=== PATIENT | male | born 1955 | race Caucasian/White ===

== ENCOUNTER 2021-01-14 23:29 | Inpatient (IN) | payer MEDICARE, OTHER ==
[2021-01-14] MEDS ORDERED: Morphine 2 MG/ML SYRINGE IVPUSH PRN (23:54)
--- NOTE | 2021-01-14 23:58 | EDM.PDOC ---
ED HPI GENERAL MEDICAL PROBLEM - General Chief Complaint: Chest Pain Stated Complaint: MED[facility] Time Seen by Provider: 01/14/21 23:49 Source of Information: Reports: Patient, RN Notes Reviewed History Limitations: Reports: No Limitations - History of Present Illness INITIAL COMMENTS - FREE TEXT/NARRATIVE: 65-year-old gentleman presents emergency department a sudden onset of chest pain, he did have some numbness and tingling in his arms no diaphoresis had some nausea no shortness of breath beyond baseline. He has no cardiac history does have a history of esophageal cancer Chest Pain Score (Numeric/FACES): 2 - Related Data Allergies Allergy/AdvReac Type Severity Reaction Status Date / Time No Known Allergies Allergy Verified 01/14/21 23:42 Home Meds: Home Meds NK [No Known Home Meds] 01/14/21 [History] Past Medical History HEENT History: Reports: Impaired Vision Musculoskeletal History: Reports: Arthritis Psychiatric History: Reports: Other (See Below) Other Psychiatric History: undiagnoised but pt thinks he might have anxiety Oncologic (Cancer) History: Reports: Other (See Below) Other Oncologic History: tonsils Dermatologic History: Reports: Eczema - Infectious Disease History Infectious Disease History: Reports: Mononucleosis, Novel Coronavirus - Past Surgical History HEENT Surgical History: Reports: Tonsillectomy Social & Family History - Tobacco Use Tobacco Use Status *Q: Never Tobacco User - Alcohol Use Number of Drinks Per Day: 2 - Recreational Drug Use Recreational Drug Use: No ED ROS GENERAL - Review of Systems Review Of Systems: See Below Constitutional: Reports: No Symptoms. Denies: Diaphoresis HEENT: Reports: No Symptoms Respiratory: Reports: Shortness of Breath Cardiovascular: Reports: Chest Pain GI/Abdominal: Reports: Nausea. Denies: Vomiting ED EXAM, GENERAL - Physical Exam Exam: See Below Exam Limited By: No Limitations General Appearance: Alert (25), WD/WN, No Apparent Distress Respiratory/Chest: No Respiratory Distress, Lungs Clear, Normal Breath Sounds, No Accessory Muscle Use, Chest Non-Tender Cardiovascular: Regular Rate, Rhythm, No Murmur GI/Abdominal: Soft, Non-Tender Extremities: No Pedal Edema #1 Interpretation EKG Date: 01/15/21 Time: 00:30 Rhythm: NSR [place]: Normal P-Wave: Present QRS: Normal ST-T: Normal QT: Normal Comparison: NA - No Prior EKG Course - Vital Signs Last Recorded V/S: Last Vital Signs Temp 98.4 F 01/15/21 03:15 Pulse 94 01/15/21 03:15 Resp 20 01/15/21 03:15 BP 116/71 01/15/21 03:15 Pulse Ox 93 L 01/15/21 03:15 - Orders/Labs/Meds Orders: Active Orders 24 hr Category Date Time Status Cardiac Monitoring [RC] .As Directed Care 01/14/21 23:54 Active EKG Documentation Completion [RC] ASDIRECTED Care 01/14/21 23:55 Active Chest 1V Frontal [CR] Stat Exams 01/14/21 23:55 Taken CULTURE BLOOD [BC] Urgent Lab 01/15/21 04:49 Ordered CULTURE BLOOD [BC] Urgent Lab 01/15/21 04:49 Ordered LACTIC ACID [CHEM] Stat Lab 01/15/21 04:53 Ordered Doxycycline [Vibramycin] 100 mg Med 01/15/21 04:49 Active Sodium Chloride 0.9% [Normal Saline] 100 ml IV ONETIME Morphine Med 01/14/21 23:54 Active 2 mg IVPUSH Q10M PRN cefTRIAXone [Rocephin] 1 gm Med 01/15/21 04:49 Active Sodium Chloride 0.9% [Normal Saline] 50 ml IV ONETIME Blood Culture x2 Reflex Set [OM.PC] Urgent Oth 01/15/21 04:49 Ordered Isolation [COMM] Stat Oth 01/15/21 02:50 Ordered EKG 12 Lead [EK] Stat Ther 01/14/21 23:55 Ordered Medication Orders Doxycycline Hyclate 100 mg/ (Sodium Chloride) 100 mls @ 100 mls/hr IV ONETIME ONE Stop: 01/15/21 05:48 Ceftriaxone Sodium 1 gm/ (Sodium Chloride) 50 mls @ 100 mls/hr IV ONETIME ONE Stop: 01/15/21 05:18 Morphine Sulfate (Morphine 2 Mg/Ml Syringe) 2 mg IVPUSH Q10M PRN PRN Reason: Chest Pain Stop: 01/15/21 23:55 Labs: Laboratory Tests 01/14/21 01/14/21 01/14/21 Range/Units 23:55 23:55 23:55 WBC 12.3 H (4.5-11.0) K/uL RBC 4.02 L (4.30-5.90) M/uL Hgb 12.6 (12.0-15.0) g/dL Hct 38.9 L (40.0-54.0) % MCV 97 (80-98) fL MCH 31 (27-31) pg MCHC 32 (32-36) % Plt Count 286 (150-400) K/uL Neut % (Auto) 88.4 H (36-66) % Lymph % (Auto) 4.5 L (24-44) % [place] % (Auto) 6.2 H (2-6) % Eos % (Auto) 0.7 L (2-4) % Baso % (Auto) 0.2 (0-1) % D-Dimer, Quantitative 934.41 H (0.0-500.0) ng/mL Sodium 142 (140-148) mmol/L Potassium 4.2 (3.6-5.2) mmol/L Chloride 104 (100-108) mmol/L Carbon Dioxide 30 (21-32) mmol/L Anion Gap 8.1 (5.0-14.0) mmol/L BUN 20 H (7-18) mg/dL Creatinine 1.1 (0.8-1.3) mg/dL Est Cr Clr Drug Dosing 76.67 mL/min Estimated GFR (MDRD) > 60 (>60) Glucose 115 H (74-106) mg/dL Calcium 8.3 L (8.5-10.1) mg/dL Total Bilirubin 0.2 (0.2-1.0) mg/dL AST 20 (15-37) U/L ALT 22 (12-78) U/L Alkaline Phosphatase 79 (46-116) U/L Troponin I < 0.017 (0.000-0.056) ng/mL Total Protein 6.6 (6.4-8.2) g/dL Albumin 3.0 L (3.4-5.0) g/dL Globulin 3.6 H (2.3-3.5) g/dL Albumin/Globulin Ratio 0.8 L (1.2-2.2) Procalcitonin ng/mL Influenza Type A RNA (NEGATIVE) RSV RNA (INAAT) (NEGATIVE) Influenza Type B RNA (NEGATIVE) SARS-CoV-2 RNA (RYDER) (NEGATIVE) 01/14/21 01/15/2121 Range/Units 23:55 02:50 04:00 WBC (4.5-11.0) K/uL RBC (4.30-5.90) M/uL Hgb (12.0-15.0) g/dL Hct (40.0-54.0) % MCV (80-98) fL MCH (27-31) pg MCHC (32-36) % Plt Count (150-400) K/uL Neut % (Auto) (36-66) % Lymph % (Auto) (24-44) % [place] % (Auto) (2-6) % Eos % (Auto) (2-4) % Baso % (Auto) (0-1) % D-Dimer, Quantitative (0.0-500.0) ng/mL Sodium (140-148) mmol/L Potassium (3.6-5.2) mmol/L Chloride (100-108) mmol/L Carbon Dioxide (21-32) mmol/L Anion Gap (5.0-14.0) mmol/L BUN (7-18) mg/dL Creatinine (0.8-1.3) mg/dL Est Cr Clr Drug Dosing mL/min Estimated GFR (MDRD) (>60) Glucose (74-106) mg/dL Calcium (8.5-10.1) mg/dL Total Bilirubin (0.2-1.0) mg/dL AST (15-37) U/L ALT (12-78) U/L Alkaline Phosphatase (46-116) U/L Troponin I < 0.017 (0.000-0.056) ng/mL Total Protein (6.4-8.2) g/dL Albumin (3.4-5.0) g/dL Globulin (2.3-3.5) g/dL Albumin/Globulin Ratio (1.2-2.2) Procalcitonin 0.28 ng/mL Influenza Type A RNA Negative (NEGATIVE) RSV RNA (INAAT) Negative (NEGATIVE) Influenza Type B RNA Negative (NEGATIVE) SARS-CoV-2 RNA (RYDER) Negative (NEGATIVE) Meds: Medications Generic Name Dose Route Start Last Admin Trade Name Freq PRN Reason Stop Dose Admin Doxycycline Hyclate 100 mg/ 100 mls @ 100 mls/hr 01/15/21 04:49 Sodium Chloride IV 01/15/21 05:48 ONETIME ONE Ceftriaxone Sodium 1 gm/ 50 mls @ 100 mls/hr 01/15/21 04:49 Sodium Chloride IV 01/15/21 05:18 ONETIME ONE Morphine Sulfate 2 mg 01/14/21 23:54 Morphine 2 Mg/Ml Syringe IVPUSH 01/15/21 23:55 Q10M PRN Chest Pain Discontinued Medications Generic Name Dose Route Start Last Admin Trade Name Stefanie PRN Reason Stop Dose Admin Lactated Ringer's 1,000 mls @ 999 mls/hr 01/15/21 00:44 01/15/21 00:51 Ringers, Lactated IV 01/15/21 01:44 999 mls/hr BOLUS ONE Administration Sodium Chloride 100 mls @ 4 mls/sec 01/15/21 01:38 01/15/21 01:47 Normal Saline IV 01/15/21 01:39 4 mls/sec ASDIRECTED STA Administration Iopamidol 100 ml 01/15/21 01:38 01/15/21 01:47 Iopamidol 755 Mg/Ml 100 Ml Bottle IV 01/15/21 01:39 100 ml . DIRECTED STA Administration Lorazepam 0.5 mg 01/15/21 01:19 01/15/21 01:33 Lorazepam 2 Mg/Ml Sdv IVPUSH 01/15/21 01:20 0.5 mg ONETIME ONE Administration Departure - Departure Time of Disposition: 04:57 Disposition: Admitted As Inpatient 67 Condition: Fair Clinical Impression: CAP (community acquired pneumonia) Qualifiers: Laterality: unspecified laterality Qualified Code(s): J18.9 - Pneumonia, unspecified organism Referrals: PCP,None [Primary Care Provider] - Forms: ED Department Discharge Sepsis Event Note (ED) - Evaluation Sepsis Screening Result: Possible Sepsis Risk - Focused Exam Vital Signs: Vital Signs Temp Pulse Resp BP Pulse Ox 01/15/21 03:15 98.4 F 94 20 116/71 93 L 01/15/21 02:42 95 210 H 134/80 91 L 01/15/21 01:35 99 18 109/58 L 96 01/15/21 00:41 99.8 F 106 H 15 83/47 L 93 L 01/14/21 23:45 100.7 F H 112 H 20 127/79 95 01/14/21 23:35 100.7 F H 112 H 20 127/79 95 - My Orders Last 24 Hours: My Active Orders 01/14/21 23:54 Cardiac Monitoring [RC] .As Directed Morphine 2 mg IVPUSH Q10M PRN 01/14/21 23:55 EKG Documentation Completion [RC] ASDIRECTED Chest 1V Frontal [CR] Stat EKG 12 Lead [EK] Stat 01/15/21 02:50 Isolation [COMM] Stat 01/15/21 04:49 CULTURE BLOOD [BC] Urgent CULTURE BLOOD [BC] Urgent Doxycycline [Vibramycin] 100 mg Sodium Chloride 0.9% [Normal Saline] 100 ml IV ONETIME cefTRIAXone [Rocephin] 1 gm Sodium Chloride 0.9% [Normal Saline] 50 ml IV ONETIME Blood Culture x2 Reflex Set [OM.PC] Urgent 01/15/21 04:53 LACTIC ACID [CHEM] Stat - Assessment/Plan Last 24 Hours: My Active Orders 01/14/21 23:54 Cardiac Monitoring [RC] .As Directed Morphine 2 mg IVPUSH Q10M PRN 01/14/21 23:55 EKG Documentation Completion [RC] ASDIRECTED Chest 1V Frontal [CR] Stat EKG 12 Lead [EK] Stat 01/15/21 02:50 Isolation [COMM] Stat 01/15/21 04:49 CULTURE BLOOD [BC] Urgent CULTURE BLOOD [BC] Urgent Doxycycline [Vibramycin] 100 mg Sodium Chloride 0.9% [Normal Saline] 100 ml IV ONETIME cefTRIAXone [Rocephin] 1 gm Sodium Chloride 0.9% [Normal Saline] 50 ml IV ONETIME Blood Culture x2 Reflex Set [OM.PC] Urgent 01/15/21 04:53 LACTIC ACID [CHEM] Stat Plan: Assessment Acuity = acute Site and laterality = community-acquired pneumonia Etiology = probable bacterial cause Manifestations = hypoxic Location of injury = Home Lab values = WBC elevated 12.3 consistent leukocytosis, D-dimer elevated 934 of uncertain significance troponin was negative x2 procalcitonin negative for sepsis at 0.28 lactic acid pending Covid influenza A+B and RSV all negative CT scan shows no pulmonary embolism but does show bilateral pulmonary infiltrates consistent with an infectious process Plan Call discussed case with hospitalist on-call at 450 can agreed to come evaluate patient emergency department for admission antibiotics of Rocephin and doxycycline initiated, blood cultures pending This note was dictated using dragon voice recognition software please call with any questions on syntax or grammar.
[2021-01-15] MEDS ORDERED: Lactated Ringers 1,000 ML IV ONE (00:44)
[2021-01-15] MEDS ORDERED: LORazepam 2 MG/ML SDV IVPUSH ONE (01:19)
[2021-01-15] MEDS ORDERED: Sodium Chloride 0.9% 100 ML IV STA (01:38)
[2021-01-15] MEDS ORDERED: Iopamidol 755 Mg/ML 100 ML Bottle IV STA (01:38)
--- NOTE | 2021-01-15 02:43 | CRLCT ---
For Patients: As a result of the Century Cures Act, medical imaging exams and procedure reports are released immediately into your electronic medical record. You may view this report before your referring provider. If you have questions, please contact your health care provider. INDICATION: Chest pain, elevated D-dimer TECHNIQUE: Contrast enhanced axial CT imaging through the chest, optimized for assessment of the pulmonary arterial tree. 100 mL Isovue 370 contrast agent was administered intravenously. Sagittal and coronal reconstructions are provided. COMPARISON: None FINDINGS: There is adequate opacification of the pulmonary arterial tree without evidence of thromboembolism. The main pulmonary artery is nonenlarged. The heart is normal in size. There is no pericardial effusion. The thoracic aorta is normal in caliber. There are bibasilar ground-glass and consolidative opacities, more pronounced on the left, likely representing infectious infiltrates. Subpleural bullous changes are noted in the lung apices in along the medial margin of the lingula. There is no pleural effusion or pneumothorax. Numerous mildly enlarged lymph nodes are noted throughout the mediastinum and bilateral pulmonary margaret, likely reactive. Degenerative changes are noted in the thoracic spine. The thoracic osseous structures are otherwise unremarkable. No significant abnormality is demonstrated in the visualized upper abdomen. IMPRESSION: 1. Bibasilar ground-glass and consolidative airspace opacities, likely representing infectious infiltrates. Correlate clinically. 2. No evidence of pulmonary thromboembolism. Please note that all CT scans at this facility use dose modulation, iterative reconstruction, and/or weight-based dosing when appropriate to reduce radiation dose to as low as reasonably achievable. Dictated by Malcolm Boykin MD @ 01/15/2021 2:42:[address] Malcolm Boykin @ Jan 15 2021 2:42AM
[2021-01-15 03:43] LABS: CORONAVIRUS COVID-19 NAA NEGATIVE (NEGATIVE)
[2021-01-15] MEDS ORDERED: Doxycycline 100 MG in Sodium Chloride 0.9% 100 ML IV ONE (04:49)
[2021-01-15] MEDS ORDERED: cefTRIAXone 1 GM in Sodium Chloride 0.9% 50 ML IV ONE (04:49)
[2021-01-15] MEDS ORDERED: Sodium Chloride 0.9% 1,000 ML IV SCH (05:15)
[2021-01-15] MEDS ORDERED: Codeine/guaiFENesin 10-100 MG/5 ML Syrup 5 ML Cup PO PRN (06:18)
[2021-01-15] MEDS ORDERED: oxyCODONE 5 MG Tab PO PRN (06:18)
[2021-01-15] MEDS ORDERED: Ondansetron 4 MG Tab.DIS PO PRN (06:18)
[2021-01-15] MEDS ORDERED: Morphine 2 MG/ML SYRINGE IVPUSH PRN (06:18)
[2021-01-15] MEDS ORDERED: Acetaminophen 325 MG Tab PO PRN (06:18)
[2021-01-15] MEDS ORDERED: Ondansetron 4 MG/2 ML SDV IV PRN (06:18)
[2021-01-15] MEDS ORDERED: Bisacodyl 5 MG Tab PO PRN (06:18)
[2021-01-15] MEDS ORDERED: Albuterol/Ipratropium 3.0-0.5 MG/3 ML Neb Soln NEB PRN (06:18)
[2021-01-15] MEDS ORDERED: Docusate Sodium 100 MG Cap PO PRN (06:18)
[2021-01-15] MEDS ORDERED: Albuterol 0.083% 2.5 MG/3 ML Neb Soln NEB PRN (06:18)
--- NOTE | 2021-01-15 06:18 | PCM.HP.2 ---
H&P History of Present Illness - General Date of Service: 01/14/21 Admit Problem/Dx: Admission Diagnosis/Problem Admission Diagnosis/Problem Pneumonia Source of Information: Patient, Provider, RN History Limitations: Reports: No Limitations - History of Present Illness Initial Comments - Free Text/Narative: chief complaint: chest pain today- shortness of breath for months 65-year-old gentleman presents emergency department a sudden onset of chest pain, he did have some numbness and tingling in his arms no diaphoresis had some nausea no shortness of breath beyond baseline. He has no cardiac history does have a history of esophageal cancer feels he had Covid infection 2019 - but did not get tested reports takes no medications, no Primary Care Provider because is healthy. Onset of Symptoms: Reports: Today Symptom Onset Date: 01/14/21 Duration of Symptoms: Reports: Improving Location: Reports: Generalized Quality: Reports: Other (reports no pain at this time) Severity: Mild Improves with: Reports: Medication Worsens with: Reports: None Associated Symptoms: Reports: Cough, Fever/Chills (intermittent chills without fever), Shortness of Breath Chest Pain Score (Numeric/FACES): 2 - Related Data Allergies/Adverse Reactions: Allergies Allergy/AdvReac Type Severity Reaction Status Date / Time No Known Allergies Allergy Verified 01/14/21 23:42 Home Medications: Home Meds NK [No Known Home Meds] 01/14/21 [History] Past Medical History HEENT History: Reports: Impaired Vision Gastrointestinal History: Reports: Other (See Below) Other Gastrointestinal History: Inguinal hernia that pt reduces himself as needed Musculoskeletal History: Reports: Arthritis Psychiatric History: Reports: Other (See Below) Other Psychiatric History: undiagnoised but pt thinks he might have anxiety Oncologic (Cancer) History: Reports: Other (See Below) Other Oncologic History: tonsils Dermatologic History: Reports: Eczema - Infectious Disease History Infectious Disease History: Reports: Mononucleosis, Novel Coronavirus - Past Surgical History HEENT Surgical History: Reports: Tonsillectomy Social & Family History - Tobacco Use Tobacco Use Status *Q: Never Tobacco User - Alcohol Use Number of Drinks Per Day: 2 - Recreational Drug Use Recreational Drug Use: No - Living Situation & Occupation Living situation: Reports: (lives with Padmini in [place], [place]. 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.) H&P Review of Systems - Review of Systems: Review Of Systems: See Below General: Reports: Chills, Malaise HEENT: Reports: Glasses Pulmonary: Reports: Shortness of Breath, Cough Cardiovascular: Reports: Dyspnea on Exertion Gastrointestinal: Reports: No Symptoms, Other (last bowel movement 01/14/2021) Genitourinary: Reports: No Symptoms Musculoskeletal: Reports: No Symptoms Skin: Reports: No Symptoms Psychiatric: Reports: No Symptoms Neurological: Reports: No Symptoms Hematologic/Lymphatic: Reports: No Symptoms Immunologic: Reports: No Symptoms Exam - Exam Exam: See Below - Vital Signs Vital Signs: Last Vital Signs Temp 98.4 F 01/15/21 03:15 Pulse 86 01/15/21 05:47 Resp 18 01/15/21 05:47 BP 128/79 01/15/21 05:47 Pulse Ox 79 L 01/15/21 05:47 Weight: 180 lb - Exam Quality Assessment: Supplemental Oxygen, DVT Prophylaxis General: Alert, Oriented, Cooperative, Other (neat and well groomed male, pleasant polite, no distress noted.) HEENT: PERRLA, Hearing Intact, Mucosa Moist & Greasy, Nares Patent, Normal Nasal Septum, Posterior Pharynx Clear, Conjunctiva Clear, EOMI, EACs Clear, TMs Clear Neck: Supple, Trachea Midline, 2 Lungs: Clear to Auscultation, Normal Respiratory Effort Cardiovascular: Regular Rate, Regular Rhythm GI/Abdominal Exam: Normal Bowel Sounds, Soft, Non-Tender, No Organomegaly, No Distention, No Abnormal Bruit, No Mass, Pelvis Stable (Male) Exam: Deferred Rectal (Males) Exam: Deferred Back Exam: Normal Inspection, Full Range of Motion, NT Extremities: Normal Inspection Peripheral Pulses: 2+: Radial (L), Radial (R) Skin: Warm, Dry, Intact Neurological: Cranial Nerves Intact, Strength Equal Bilateral Neuro Extensive - Mental Status: Alert, Oriented x3, Normal Mood/Affect, Normal Cognition Neuro Extensive - Motor, Sensory, Reflexes: CN II-XII Intact, Normal Gait, Normal Reflexes Psychiatric: Alert, Normal Affect, Normal Mood - Patient Data Lab Results Last 24 hrs: Laboratory Results - last 24 hr 01/14/21 01/14/21 01/14/21 Range/Units 23:55 23:55 23:55 WBC 12.3 H (4.5-11.0) K/uL RBC 4.02 L (4.30-5.90) M/uL Hgb 12.6 (12.0-15.0) g/dL Hct 38.9 L (40.0-54.0) % MCV 97 (80-98) fL MCH 31 (27-31) pg MCHC 32 (32-36) % Plt Count 286 (150-400) K/uL Neut % (Auto) 88.4 H (36-66) % Lymph % (Auto) 4.5 L (24-44) % [place] % (Auto) 6.2 H (2-6) % Eos % (Auto) 0.7 L (2-4) % Baso % (Auto) 0.2 (0-1) % D-Dimer, Quantitative 934.41 H (0.0-500.0) ng/mL Sodium 142 (140-148) mmol/L Potassium 4.2 (3.6-5.2) mmol/L Chloride 104 (100-108) mmol/L Carbon Dioxide 30 (21-32) mmol/L Anion Gap 8.1 (5.0-14.0) mmol/L BUN 20 H (7-18) mg/dL Creatinine 1.1 (0.8-1.3) mg/dL Est Cr Clr Drug Dosing 76.67 mL/min Estimated GFR (MDRD) > 60 (>60) Glucose 115 H (74-106) mg/dL Lactic Acid (0.4-2.0) mmol/L Calcium 8.3 L (8.5-10.1) mg/dL Total Bilirubin 0.2 (0.2-1.0) mg/dL AST 20 (15-37) U/L ALT 22 (12-78) U/L Alkaline Phosphatase 79 (46-116) U/L Troponin I < 0.017 (0.000-0.056) ng/mL Total Protein 6.6 (6.4-8.2) g/dL Albumin 3.0 L (3.4-5.0) g/dL Globulin 3.6 H (2.3-3.5) g/dL Albumin/Globulin Ratio 0.8 L (1.2-2.2) Procalcitonin ng/mL Influenza Type A RNA (NEGATIVE) RSV RNA (INAAT) (NEGATIVE) Influenza Type B RNA (NEGATIVE) SARS-CoV-2 RNA (RYDER) (NEGATIVE) 01/14/21 01/15/21 01/15/21 Range/Units 23:55 02:50 04:00 WBC (4.5-11.0) K/uL RBC (4.30-5.90) M/uL Hgb (12.0-15.0) g/dL Hct (40.0-54.0) % MCV (80-98) fL MCH (27-31) pg MCHC (32-36) % Plt Count (150-400) K/uL Neut % (Auto) (36-66) % Lymph % (Auto) (24-44) % [place] % (Auto) (2-6) % Eos % (Auto) (2-4) % Baso % (Auto) (0-1) % D-Dimer, Quantitative (0.0-500.0) ng/mL Sodium (140-148) mmol/L Potassium (3.6-5.2) mmol/L Chloride (100-108) mmol/L Carbon Dioxide (21-32) mmol/L Anion Gap (5.0-14.0) mmol/L BUN (7-18) mg/dL Creatinine (0.8-1.3) mg/dL Est Cr Clr Drug Dosing mL/min Estimated GFR (MDRD) (>60) Glucose (74-106) mg/dL Lactic Acid (0.4-2.0) mmol/L Calcium (8.5-10.1) mg/dL Total Bilirubin (0.2-1.0) mg/dL AST (15-37) U/L ALT (12-78) U/L Alkaline Phosphatase (46-116) U/L Troponin I < 0.017 (0.000-0.056) ng/mL Total Protein (6.4-8.2) g/dL Albumin (3.4-5.0) g/dL Globulin (2.3-3.5) g/dL Albumin/Globulin Ratio (1.2-2.2) Procalcitonin 0.28 ng/mL Influenza Type A RNA Negative (NEGATIVE) RSV RNA (INAAT) Negative (NEGATIVE) Influenza Type B RNA Negative (NEGATIVE) SARS-CoV-2 RNA (RYDER) Negative (NEGATIVE) 01/15/21 Range/Units 05:05 WBC (4.5-11.0) K/uL RBC (4.30-5.90) M/uL Hgb (12.0-15.0) g/dL Hct (40.0-54.0) % MCV (80-98) fL MCH (27-31) pg MCHC (32-36) % Plt Count (150-400) K/uL Neut % (Auto) (36-66) % Lymph % (Auto) (24-44) % [place] % (Auto) (2-6) % Eos % (Auto) (2-4) % Baso % (Auto) (0-1) % D-Dimer, Quantitative (0.0-500.0) ng/mL Sodium (140-148) mmol/L Potassium (3.6-5.2) mmol/L Chloride (100-108) mmol/L Carbon Dioxide (21-32) mmol/L Anion Gap (5.0-14.0) mmol/L BUN (7-18) mg/dL Creatinine (0.8-1.3) mg/dL Est Cr Clr Drug Dosing mL/min Estimated GFR (MDRD) (>60) Glucose (74-106) mg/dL Lactic Acid 0.8 (0.4-2.0) mmol/L Calcium (8.5-10.1) mg/dL Total Bilirubin (0.2-1.0) mg/dL AST (15-37) U/L ALT (12-78) U/L Alkaline Phosphatase (46-116) U/L Troponin I (0.000-0.056) ng/mL Total Protein (6.4-8.2) g/dL Albumin (3.4-5.0) g/dL Globulin (2.3-3.5) g/dL Albumin/Globulin Ratio (1.2-2.2) Procalcitonin ng/mL Influenza Type A RNA (NEGATIVE) RSV RNA (INAAT) (NEGATIVE) Influenza Type B RNA (NEGATIVE) SARS-CoV-2 RNA (RYDER) (NEGATIVE) Result Diagrams: 01/14/21 23:55 01/14/21 23:55 Sepsis Event Note - Evaluation Sepsis Screening Result: Possible Sepsis Risk - Focused Exam Vital Signs: Vital Signs Temp Pulse Resp BP Pulse Ox 01/15/21 05:47 86 18 128/79 79 L 01/15/21 05:14 89 21 H 132/86 91 L 01/15/21 03:15 98.4 F 94 20 116/71 93 L 01/15/21 02:42 95 210 H 134/80 91 L 01/15/21 01:35 99 18 109/58 L 96 01/15/21 00:41 99.8 F 106 H 15 83/47 L 93 L 01/14/21 23:45 100.7 F H 112 H 20 127/79 95 01/14/21 23:35 100.7 F H 112 H 20 127/79 95 - Problem List (1) CAP (community acquired pneumonia) SNOMED Code(s): 804007694 ICD Code: J18.9 - PNEUMONIA, UNSPECIFIED ORGANISM Status: Acute Priority: High Current Visit: Yes Qualifiers: Laterality: unspecified laterality Qualified Code(s): J18.9 - Pneumonia, unspecified organism Problem List Initiated/Reviewed/Updated: Yes Orders Last 24hrs: Active Orders 24 hr Category Date Time Status Patient Status Manage Transfer [TRANSFER] Routine ADT 01/15/21 06:01 Ordered Cardiac Monitoring [RC] .As Directed Care 01/14/21 23:54 Active EKG Documentation Completion [RC] ASDIRECTED Care 01/14/21 23:55 Active Chest 1V Frontal [CR] Stat Exams 01/14/21 23:55 Taken CULTURE BLOOD [BC] Urgent Lab 01/15/21 04:50 Received CULTURE BLOOD [BC] Urgent Lab 01/15/21 04:55 Received Morphine Med 01/14/21 23:54 Active 2 mg IVPUSH Q10M PRN Sodium Chloride 0.9% [Normal Saline] 1,000 ml Med 01/15/21 05:15 Active IV ASDIRECTED Blood Culture x2 Reflex Set [OM.PC] Urgent Oth 01/15/21 04:49 Ordered Isolation [COMM] Stat Oth 01/15/21 02:50 Ordered Resuscitation Status Routine Resus Stat 01/15/21 06:03 Ordered EKG 12 Lead [EK] Stat Ther 01/14/21 23:55 Ordered Medication Orders Sodium Chloride (Normal Saline) 1,000 mls @ 250 mls/hr IV ASDIRECTED FERNANDO Last Admin: 01/15/21 05:09 Dose: 250 mls/hr Documented by: MARIELA Morphine Sulfate (Morphine 2 Mg/Ml Syringe) 2 mg IVPUSH Q10M PRN PRN Reason: Chest Pain Stop: 01/15/21 23:55 Assessment/Plan Comment:: ASSESSMENT AND PLAN PNEUMONIA - sudden onset of shortness of breath with chest pain. called EMS because thought was having a heart attack. reports has been short of breath for months but had chest pain was this evening. Labs Covid 19 negative, chest CT angio shows bilateral infiltrates, blood cultures pending, Procalcitonin 0.28, lactic acid 0.8, D-dimer 934.41, WBC 12.3 -admit to [address] [place] [id number] -IV Rocephin 1 gram, first dose given in ER -IV Doxy 1 gram every 12 hours, first dose given in ER -Tylenol for pain or fever -Albuterol nebulizer every 2 hours as needed for shortness of breath -Duonebs every 6 hours as needed for shortness of breath -Oxygen to keep oxygen saturations > 95% -Lovenox 40 mg subcut. -telemetry tonight -blood cultures x 2 MAINTENANCE ISSUES -DVT prophylaxis- Lovenox 40 mg subcut -GI prophylaxis - IV Protonix 40 mg daily -Post catheter; not indicated -Nutrition- regular diet -Nicotine dependence; not required CODE STATUS- FULL ADMISSION STATUS-patient will be admitted to inpatient status, expect at least a 2 night hospital stay for evaluation and management of problems as outlined above. At the time of this admission I do not reasonably expected evaluation and management of this problem will require more than a 96 hour hospital stay. DISPOSITION-anticipate discharge to home after the hospital stay. PRIMARY CARE PROVIDER- reports no Primary Care Provider HOSPITALIST- Dr. Vilchis - Mortality Measure Prognosis:: good - Mortality Measure Prognosis:: Good
[2021-01-15] MEDS: Enoxaparin 40 MG/0.4 ML Syringe SUBCUT SCH ×2 (08:45→09:32)
[2021-01-15] MEDS: Pantoprazole 40 MG Vial IV SCH ×2 (08:45→09:31)
--- NOTE | 2021-01-15 08:50 | CR ---
CHEST: Portable 01/15/2021 at 12:23 AM CLINICAL HISTORY:Chest pain COMPARISON:None FINDINGS: There is a dense left lower lobe pneumonic infiltrate. There is also patchy opacity in the right lower lung.. IMPRESSION: Bilateral lower lung infiltrates, left greater than right
[2021-01-15] MEDS: Sodium Chloride 0.9% 1,000 ML IV SCH ×2 (13:35→20:56)
[2021-01-15] MEDS: Doxycycline 100 MG in Sodium Chloride 0.9% 100 ML IV SCH (17:25)
[2021-01-15] MEDS ORDERED: Doxycycline 100 MG in Sodium Chloride 0.9% 100 ML IV SCH (18:10)
[2021-01-16] MEDS: Sodium Chloride 0.9% 1,000 ML IV SCH (04:39)
[2021-01-16] MEDS: Doxycycline 100 MG in Sodium Chloride 0.9% 100 ML IV SCH ×2 (05:41→17:23)
[2021-01-16] MEDS: cefTRIAXone 1 GM in Sodium Chloride 0.9% 50 ML IV SCH (08:14)
[2021-01-16] MEDS ORDERED: Sodium Chloride 0.9% 500 ML IV ONE (08:26)
--- NOTE | 2021-01-16 11:17 | PCM.PN ---
- General Info Date of Service: 01/16/21 Subjective Update: Mr. Bowie has remained stable since admission and denies significant shortness of breath. He did have mild hypoxia and has been on a small amount of supplemen poli oxygen. Otherwise has been out walking in the hallways and feels significantly improved from admission. Functional Status: Reports: Tolerating Diet, Ambulating, Urinating - Review of Systems General: Reports: No Symptoms Pulmonary: Reports: No Symptoms Cardiovascular: Reports: No Symptoms Gastrointestinal: Reports: No Symptoms Genitourinary: Reports: No Symptoms - Patient Data Vitals - Most Recent: Last Vital Signs Temp 97.5 F 01/16/21 10:45 Pulse 86 01/16/21 10:45 Resp 18 01/16/21 10:45 BP 112/78 01/16/21 10:45 Pulse Ox 96 01/16/21 10:45 Weight - Most Recent: 190 lb I&O - Last 24 Hours: Intake & Output 01/15/21 01/16/21 01/16/21 22:59 06:59 14:59 Intake Total 2189 2149 410 Output Total 1350 1125 Balance 839 1024 410 Lab Results Last 24 Hours: Laboratory Results - last 24 hr 01/16/21 01/16/21 Range/Units 05:35 05:35 WBC 11.7 H (4.5-11.0) K/uL RBC 3.69 L (4.30-5.90) M/uL Hgb 11.5 L (12.0-15.0) g/dL Hct 35.8 L (40.0-54.0) % MCV 97 (80-98) fL MCH 31 (27-31) pg MCHC 32 (32-36) % Plt Count 239 (150-400) K/uL Neut % (Auto) 84.6 H (36-66) % Lymph % (Auto) 7.0 L (24-44) % [place] % (Auto) 7.0 H (2-6) % Eos % (Auto) 1.2 L (2-4) % Baso % (Auto) 0.2 (0-1) % Sodium 143 (140-148) mmol/L Potassium 3.9 (3.6-5.2) mmol/L Chloride 106 (100-108) mmol/L Carbon Dioxide 30 (21-32) mmol/L Anion Gap 6.8 (5.0-14.0) mmol/L BUN 10 (7-18) mg/dL Creatinine 0.9 (0.8-1.3) mg/dL Est Cr Clr Drug Dosing 93.71 mL/min Estimated GFR (MDRD) > 60 (>60) Glucose 106 (74-106) mg/dL Calcium 8.2 L (8.5-10.1) mg/dL Arian Results Last 24 Hours: Microbiology 01/15/21 04:50 Aerobic Blood Culture - Preliminary Blood - Arm, Right NO GROWTH AFTER 1 DAY Anaerobic Blood Culture - Preliminary NO GROWTH AFTER 1 DAY 01/15/21 04:55 Aerobic Blood Culture - Preliminary Blood - Arm, Right NO GROWTH AFTER 1 DAY Anaerobic Blood Culture - Preliminary NO GROWTH AFTER 1 DAY Med Orders - Current: Current Medications Acetaminophen (Acetaminophen 325 Mg Tab) 650 mg PO Q4H PRN PRN Reason: Pain (Mild 1-3)/fever Albuterol (Albuterol 0.083% 2.5 Mg/3 Ml Neb Soln) 2.5 mg NEB Q4H PRN PRN Reason: Shortness Of Breath/wheezing Albuterol/Ipratropium (Albuterol/Ipratropium 3.0-0.5 Mg/3 Ml Neb Soln) 3 ml NEB QID PRN PRN Reason: Shortness Of Breath/wheezing Bisacodyl (Bisacodyl 5 Mg Tab) 5 mg PO DAILY PRN PRN Reason: Constipation Docusate Sodium (Docusate Sodium 100 Mg Cap) 100 mg PO BID PRN PRN Reason: Constipation Guaifenesin/Codeine Phosphate (Codeine/Guaifenesin 10-100 Mg/5 Ml Syrup 5 Ml Cup) 10 ml PO Q6H PRN PRN Reason: Cough Ceftriaxone Sodium 1 gm/ (Sodium Chloride) 50 mls @ 200 mls/hr IV Q24H [facility] Last Admin: 01/16/21 08:14 Dose: 200 mls/hr Documented by: Doxycycline Hyclate 100 mg/ (Sodium Chloride) 100 mls @ 100 mls/hr IV Q12H [facility] Last Admin: 01/16/21 05:41 Dose: 100 mls/hr Documented by: Ondansetron HCl (Ondansetron 4 Mg Tab.Dis) 4 mg PO Q6H PRN PRN Reason: Nausea able to take PO Ondansetron HCl (Ondansetron 4 Mg/2 Ml Sdv) 4 mg IV Q4H PRN PRN Reason: Nausea/Vomiting Oxycodone HCl (Oxycodone 5 Mg Tab) 5 mg PO Q4H PRN PRN Reason: Pain (moderate 4-6) Discontinued Medications Enoxaparin Sodium (Enoxaparin 40 Mg/0.4 Ml Syringe) 40 mg SUBCUT DAILY [facility] Last Admin: 01/15/21 09:32 Dose: Not Given Documented by: Lactated Ringer's (Ringers, Lactated) 1,000 mls @ 999 mls/hr IV BOLUS ONE Stop: 01/15/21 01:44 Last Admin: 01/15/21 00:51 Dose: 999 mls/hr Documented by: Sodium Chloride (Normal Saline) 100 mls @ 4 mls/sec IV ASDIRECTED STA Stop: 01/15/21 01:39 Last Admin: 01/15/21 01:47 Dose: 4 mls/sec Documented by: Doxycycline Hyclate 100 mg/ (Sodium Chloride) 100 mls @ 100 mls/hr IV ONETIME ONE Stop: 01/15/21 05:48 Last Admin: 01/15/21 05:44 Dose: 100 mls/hr Documented by: Ceftriaxone Sodium 1 gm/ (Sodium Chloride) 50 mls @ 100 mls/hr IV ONETIME ONE Stop: 01/15/21 05:18 Last Admin: 01/15/21 05:09 Dose: 100 mls/hr Documented by: Sodium Chloride (Normal Saline) 1,000 mls @ 250 mls/hr IV ASDIRECTED [facility] Last Admin: 01/15/21 05:09 Dose: 250 mls/hr Documented by: Sodium Chloride (Normal Saline) 1,000 mls @ 125 mls/hr IV ASDIRECTED [facility] Last Admin: 01/16/21 04:39 Dose: 125 mls/hr Documented by: Sodium Chloride (Normal Saline) 500 mls @ 250 mls/hr IV .BOLUS ONE Stop: 01/16/21 10:25 Last Admin: 01/16/21 08:40 Dose: 250 mls/hr Documented by: Iopamidol (Iopamidol 755 Mg/Ml 100 Ml Bottle) 100 ml IV . DIRECTED STA Stop: 01/15/21 01:39 Last Admin: 01/15/21 01:47 Dose: 100 ml Documented by: Lorazepam (Lorazepam 2 Mg/Ml Sdv) 0.5 mg IVPUSH ONETIME ONE Stop: 01/15/21 01:20 Last Admin: 01/15/21 01:33 Dose: 0.5 mg Documented by: Morphine Sulfate (Morphine 2 Mg/Ml Syringe) 2 mg IVPUSH Q10M PRN PRN Reason: Chest Pain Stop: 01/15/21 23:55 Morphine Sulfate (Morphine 2 Mg/Ml Syringe) 2 mg IVPUSH Q2H PRN PRN Reason: Pain (severe 7-10) Pantoprazole Sodium (Pantoprazole 40 Mg Vial) 40 mg IV ACBREAKFAST FERNANDO Last Admin: 01/15/21 09:31 Dose: Not Given Documented by: - Exam Quality Assessment: Supplemental Oxygen, DVT Prophylaxis General: Alert, Oriented, Cooperative, No Acute Distress Lungs: Clear to Auscultation, Normal Respiratory Effort Cardiovascular: Regular Rate, Regular Rhythm, No Murmurs GI/Abdominal Exam: Soft, Non-Tender, No Organomegaly, No Distention Extremities: Non-Tender, No Pedal Edema - Patient Data Lab Results Last 24 hrs: Laboratory Results - last 24 hr 01/16/21 01/16/21 Range/Units 05:35 05:35 WBC 11.7 H (4.5-11.0) K/uL RBC 3.69 L (4.30-5.90) M/uL Hgb 11.5 L (12.0-15.0) g/dL Hct 35.8 L (40.0-54.0) % MCV 97 (80-98) fL MCH 31 (27-31) pg MCHC 32 (32-36) % Plt Count 239 (150-400) K/uL Neut % (Auto) 84.6 H (36-66) % Lymph % (Auto) 7.0 L (24-44) % [place] % (Auto) 7.0 H (2-6) % Eos % (Auto) 1.2 L (2-4) % Baso % (Auto) 0.2 (0-1) % Sodium 143 (140-148) mmol/L Potassium 3.9 (3.6-5.2) mmol/L Chloride 106 (100-108) mmol/L Carbon Dioxide 30 (21-32) mmol/L Anion Gap 6.8 (5.0-14.0) mmol/L BUN 10 (7-18) mg/dL Creatinine 0.9 (0.8-1.3) mg/dL Est Cr Clr Drug Dosing 93.71 mL/min Estimated GFR (MDRD) > 60 (>60) Glucose 106 (74-106) mg/dL Calcium 8.2 L (8.5-10.1) mg/dL Result Diagrams: 01/16/21 05:35 01/16/21 05:35 Arian Results Last 24 hrs: Microbiology 01/15/21 04:50 Aerobic Blood Culture - Preliminary Blood - Arm, Right NO GROWTH AFTER 1 DAY Anaerobic Blood Culture - Preliminary NO GROWTH AFTER 1 DAY 01/15/21 04:55 Aerobic Blood Culture - Preliminary Blood - Arm, Right NO GROWTH AFTER 1 DAY Anaerobic Blood Culture - Preliminary NO GROWTH AFTER 1 DAY Sepsis Event Note - Evaluation Sepsis Screening Result: No Definite Risk - Focused Exam Vital Signs: Vital Signs Temp Pulse Resp BP BP Pulse Ox 01/16/21 10:45 97.5 F 86 18 112/78 96 01/16/21 08:20 78/50 L 01/16/21 07:30 95 01/16/21 07:00 98.3 F 86 18 81/49 L 92 L 01/16/21 02:59 98.7 F 82 16 115/57 L 96 01/16/21 01:00 95 - Problem List Review Problem List Initiated/Reviewed/Updated: Yes - My Orders Last 24 Hours: My Active Orders 01/15/21 17:00 Antiembolic Devices [RC] .Routine Sequential Compression Device [OM.PC] Routine 01/16/21 11:11 Convert IV to Saline Lock [OM.PC] Routine 01/17/21 05:00 BASIC METABOLIC PANEL,BMP [CHEM] Timed CBC WITH AUTO DIFF [HEME] Timed - Plan Plan:: ASSESSMENT AND PLAN PNEUMONIA -stable since admission, very mild hypoxia while sleeping, requiring small amount of supplemental oxygen. White blood cell count has improved and he has remained afebrile. Able to walk in the hallways without significant difficulty. -IV Rocephin 1 gram, first dose given in ER -IV Doxy 1 gram every 12 hours, first dose given in ER -Tylenol for pain or fever -Albuterol nebulizer every 2 hours as needed for shortness of breath -Duonebs every 6 hours as needed for shortness of breath -Oxygen to keep oxygen saturations > 90% -blood cultures x 2 MAINTENANCE ISSUES -DVT prophylaxis- Lovenox 40 mg subcut -GI prophylaxis - IV Protonix 40 mg daily -Post catheter; not indicated -Nutrition- regular diet -Nicotine dependence; not required CODE STATUS- FULL ADMISSION STATUS-patient will be admitted to inpatient status, expect at least a 2 night hospital stay for evaluation and management of problems as outlined above. At the time of this admission I do not reasonably expected evaluation and management of this problem will require more than a 96 hour hospital stay. DISPOSITION-anticipate discharge to home tomorrow PRIMARY CARE PROVIDER- reports no Primary Care Provider HOSPITALIST- Dr. Vilchis - Mortality Measure Prognosis:: good
[2021-01-17] MEDS: Doxycycline 100 MG in Sodium Chloride 0.9% 100 ML IV SCH (05:21)
[2021-01-17] MEDS: cefTRIAXone 1 GM in Sodium Chloride 0.9% 50 ML IV SCH (08:53)
--- NOTE | 2021-01-17 11:14 | PCM.DCSUM1 ---
Discharge Summary - Hospital Course Brief History: Mr. Bowie is a 65-year-old gentleman who was admitted through the emergency department with weakness, shortness of breath, and hypoxia, secondary to pneumonia. - Discharge Data Discharge Date: 01/17/21 Discharge Disposition: Home, Self-Care 01 Condition: Fair - Referral to Home Health Primary Care Physician: PCP None - Discharge Diagnosis/Problem(s) (1) Hypoxia SNOMED Code(s): 308978164 ICD Code: R09.02 - HYPOXEMIA Status: Acute Current Visit: Yes (2) CAP (community acquired pneumonia) SNOMED Code(s): 026318046 ICD Code: J18.9 - PNEUMONIA, UNSPECIFIED ORGANISM Status: Acute Priority: High Current Visit: Yes Qualifiers: Laterality: unspecified laterality Qualified Code(s): J18.9 - Pneumonia, unspecified organism - Patient Summary/Data Hospital Course: Mr. Bowie is a 65-year-old gentleman who was admitted through the emergency department with weakness, shortness of breath, hypoxia, secondary to pneumonia. He had not felt well over the past few days prior to admission and symptoms progressed until the point that he was then into the emergency department for further evaluation. He was documented to have hypoxia with low oxygen sat uration on room air. White blood cell count was elevated and chest x-ray showed evidence of infiltrate consistent with pneumonia. Blood cultures were obtained and he was started on IV antibiotic therapy in the emergency department with ceftriaxone and doxycycline. On admission he was given IV fluids for hydration and continued on antibiotic therapy. Cultures ended up showing no growth. He improved significantly over the few days of hospitalization and by the time of discharge was not requiring supplemental oxygen. White blood cell count normalized and he remained afebrile throughout his hospital course. Activity will be as tolerated and he will resume his usual diet. Follow-up appointment will be scheduled with his primary care provider within 1 week. He will be discharged on an additional 4 days of oral antibiotic therapy with doxycycline 100 mg twice daily. - Patient Instructions Diet: Usual Diet as Tolerated Activity: As Tolerated Other/Special Instructions: Please schedule follow-up appointment with primary care provider within 1 week. - Discharge Plan *PRESCRIPTION DRUG MONITORING PROGRAM REVIEWED*: Not Applicable *COPY OF PRESCRIPTION DRUG MONITORING REPORT IN PATIENT SIVAN: Not Applicable Prescriptions/Med Rec: Doxycycline [Vibra-Tabs] 100 mg PO Q12HR #8 tab Home Medications: Home Meds Doxycycline [Vibra-Tabs] 100 mg PO Q12HR #8 tab 01/17/21 [Rx] Patient Handouts: Community-Acquired Pneumonia, Adult, [id number] Referrals: Fahad Vasquez MD [Physician] - 01/25/21 10:20 am (Please arrive 15 minutes early to register for your appointment.) - Discharge Summary/Plan Comment DC Time >30 min.: No - Patient Data Vitals - Most Recent: Last Vital Signs Temp 96.3 F L 01/17/21 07:00 Pulse 81 01/17/21 07:00 Resp 18 01/17/21 07:00 BP 97/61 01/17/21 07:00 Pulse Ox 96 01/17/21 07:00 Weight - Most Recent: 190 lb I&O - Last 24 hours: Intake & Output 01/16/21 01/17/21 01/17/21 22:59 06:59 14:59 Intake Total 1100 440 50 Output Total 300 Balance 800 440 50 Lab Results - Last 24 hrs: Laboratory Results - last 24 hr 01/17/21 01/17/21 Range/Units 06:21 06:21 WBC 7.6 (4.5-11.0) K/uL RBC 3.81 L (4.30-5.90) M/uL Hgb 12.0 (12.0-15.0) g/dL Hct 36.8 L (40.0-54.0) % MCV 97 (80-98) fL MCH 32 H (27-31) pg MCHC 33 (32-36) % Plt Count 253 (150-400) K/uL Neut % (Auto) 76.8 H (36-66) % Lymph % (Auto) 10.3 L (24-44) % [place] % (Auto) 8.9 H (2-6) % Eos % (Auto) 3.7 (2-4) % Baso % (Auto) 0.3 (0-1) % Sodium 144 (140-148) mmol/L Potassium 3.6 (3.6-5.2) mmol/L Chloride 106 (100-108) mmol/L Carbon Dioxide 29 (21-32) mmol/L Anion Gap 8.9 (5.0-14.0) mmol/L BUN 12 (7-18) mg/dL Creatinine 0.9 (0.8-1.3) mg/dL Est Cr Clr Drug Dosing 93.71 mL/min Estimated GFR (MDRD) > 60 (>60) Glucose 120 H (74-106) mg/dL Calcium 8.4 L (8.5-10.1) mg/dL OSMEL Results - Last 24 hrs: Microbiology 01/15/21 04:50 Aerobic Blood Culture - Preliminary Blood - Arm, Right NO GROWTH AFTER 2 DAYS Anaerobic Blood Culture - Preliminary NO GROWTH AFTER 2 DAYS 01/15/21 04:55 Aerobic Blood Culture - Preliminary Blood - Arm, Right NO GROWTH AFTER 2 DAYS Anaerobic Blood Culture - Preliminary NO GROWTH AFTER 2 DAYS Med Orders - Current: Current Medications Acetaminophen (Acetaminophen 325 Mg Tab) 650 mg PO Q4H PRN PRN Reason: Pain (Mild 1-3)/fever Albuterol (Albuterol 0.083% 2.5 Mg/3 Ml Neb Soln) 2.5 mg NEB Q4H PRN PRN Reason: Shortness Of Breath/wheezing Albuterol/Ipratropium (Albuterol/Ipratropium 3.0-0.5 Mg/3 Ml Neb Soln) 3 ml NEB QID PRN PRN Reason: Shortness Of Breath/wheezing Bisacodyl (Bisacodyl 5 Mg Tab) 5 mg PO DAILY PRN PRN Reason: Constipation Docusate Sodium (Docusate Sodium 100 Mg Cap) 100 mg PO BID PRN PRN Reason: Constipation Guaifenesin/Codeine Phosphate (Codeine/Guaifenesin 10-100 Mg/5 Ml Syrup 5 Ml Cup) 10 ml PO Q6H PRN PRN Reason: Cough Ceftriaxone Sodium 1 gm/ (Sodium Chloride) 50 mls @ 200 mls/hr IV Q24H [facility] Last Admin: 01/17/21 08:53 Dose: 200 mls/hr Documented by: Doxycycline Hyclate 100 mg/ (Sodium Chloride) 100 mls @ 100 mls/hr IV Q12H [facility] Last Admin: 01/17/21 05:21 Dose: 100 mls/hr Documented by: Ondansetron HCl (Ondansetron 4 Mg Tab.Dis) 4 mg PO Q6H PRN PRN Reason: Nausea able to take PO Ondansetron HCl (Ondansetron 4 Mg/2 Ml Sdv) 4 mg IV Q4H PRN PRN Reason: Nausea/Vomiting Oxycodone HCl (Oxycodone 5 Mg Tab) 5 mg PO Q4H PRN PRN Reason: Pain (moderate 4-6) Discontinued Medications Enoxaparin Sodium (Enoxaparin 40 Mg/0.4 Ml Syringe) 40 mg SUBCUT DAILY [facility] Last Admin: 01/15/21 09:32 Dose: Not Given Documented by: Lactated Ringer's (Ringers, Lactated) 1,000 mls @ 999 mls/hr IV BOLUS ONE Stop: 01/15/21 01:44 Last Admin: 01/15/21 00:51 Dose: 999 mls/hr Documented by: Sodium Chloride (Normal Saline) 100 mls @ 4 mls/sec IV ASDIRECTED STA Stop: 01/15/21 01:39 Last Admin: 01/15/21 01:47 Dose: 4 mls/sec Documented by: Doxycycline Hyclate 100 mg/ (Sodium Chloride) 100 mls @ 100 mls/hr IV ONETIME ONE Stop: 01/15/21 05:48 Last Admin: 01/15/21 05:44 Dose: 100 mls/hr Documented by: Ceftriaxone Sodium 1 gm/ (Sodium Chloride) 50 mls @ 100 mls/hr IV ONETIME ONE Stop: 01/15/21 05:18 Last Admin: 01/15/21 05:09 Dose: 100 mls/hr Documented by: Sodium Chloride (Normal Saline) 1,000 mls @ 250 mls/hr IV ASDIRECTED [facility] Last Admin: 01/15/21 05:09 Dose: 250 mls/hr Documented by: Sodium Chloride (Normal Saline) 1,000 mls @ 125 mls/hr IV ASDIRECTED [facility] Last Admin: 01/16/21 04:39 Dose: 125 mls/hr Documented by: Sodium Chloride (Normal Saline) 500 mls @ 250 mls/hr IV .BOLUS ONE Stop: 01/16/21 10:25 Last Admin: 01/16/21 08:40 Dose: 250 mls/hr Documented by: Iopamidol (Iopamidol 755 Mg/Ml 100 Ml Bottle) 100 ml IV . DIRECTED STA Stop: 01/15/21 01:39 Last Admin: 01/15/21 01:47 Dose: 100 ml Documented by: Lorazepam (Lorazepam 2 Mg/Ml Sdv) 0.5 mg IVPUSH ONETIME ONE Stop: 01/15/21 01:20 Last Admin: 01/15/21 01:33 Dose: 0.5 mg Documented by: Morphine Sulfate (Morphine 2 Mg/Ml Syringe) 2 mg IVPUSH Q10M PRN PRN Reason: Chest Pain Stop: 01/15/21 23:55 Morphine Sulfate (Morphine 2 Mg/Ml Syringe) 2 mg IVPUSH Q2H PRN PRN Reason: Pain (severe 7-10) Pantoprazole Sodium (Pantoprazole 40 Mg Vial) 40 mg IV ACBREAKFAST FERNANDO Last Admin: 01/15/21 09:31 Dose: Not Given Documented by: - Exam General: Reports: Alert, Oriented, No Acute Distress Lungs: Reports: Clear to Auscultation, Normal Respiratory Effort
== END 2021-01-17 11:32 | disposition home or self-care (01) | DRG 195 ==
LOC: JP.ED 23:29 → JP.MS 01-15 06:01
PROVIDERS: ADMIT Hospitalist; ATTEND Hospitalist
DX: J18.9 Pneumonia, unspecified organism (principal); H54.7 Unspecified visual loss; M19.90 Unspecified osteoarthritis, unspecified site; Z20.822 Contact with and (suspected) exposure to COVID-19; Z86.16 Personal history of COVID-19; Z85.01 Personal history of malignant neoplasm of esophagus
CPT/HCPCS: 0241U; 36415; 71045; 71275; 80048; 80053; 83605; 84145; 84484; 85025; 85379; 87040; 93005; 94762; 96365; 96367; 96375; 99285-25; C9113; J0696; J1650; J2060; J3490; J7030; J7040; J7120; Q9967

== ENCOUNTER 2021-02-10 07:44 | Emergency (ER) | payer MEDICARE, OTHER ==
--- NOTE | 2021-02-10 08:20 | EDM.PDOC ---
ED HPI GENERAL MEDICAL PROBLEM - General Chief Complaint: Respiratory Problem Stated Complaint: CHEST PAIN, SHORTNESS OF BREATH Time Seen by Provider: 02/10/21 08:17 Source of Information: Reports: Patient History Limitations: Reports: No Limitations - History of Present Illness INITIAL COMMENTS - FREE TEXT/NARRATIVE: pt feels uncomfortable ana he takes a deep breath on the left. He feels like his chest is tight. He has been working outside alot in the [place]. Onset: Gradual, Other (last 2 days. The pleuritic pain got alot worse in the nite. ) Duration: Hour(s): Location: Reports: Chest Quality: Reports: Sharp, Stabbing, Other ( with deep breathing. ) Associated Symptoms: Reports: Chest Pain, Cough, Shortness of Breath - Related Data Allergies Allergy/AdvReac Type Severity Reaction Status Date / Time No Known Allergies Allergy Verified 02/10/21 08:01 Home Meds: Home Meds NK [No Known Home Meds] 02/10/21 [History] Past Medical History HEENT History: Reports: Impaired Vision Gastrointestinal History: Reports: Other (See Below) Other Gastrointestinal History: Inguinal hernia that pt reduces himself as needed Musculoskeletal History: Reports: Arthritis Psychiatric History: Reports: Other (See Below) Other Psychiatric History: undiagnoised but pt thinks he might have anxiety Oncologic (Cancer) History: Reports: Other (See Below) Other Oncologic History: tonsils Dermatologic History: Reports: Eczema - Infectious Disease History Infectious Disease History: Reports: Mononucleosis, Novel Coronavirus - Past Surgical History HEENT Surgical History: Reports: Tonsillectomy Social & Family History - Family History Family Medical History: No Pertinent Family History - Tobacco Use Tobacco Use Status *Q: Never Tobacco User - Caffeine Use Caffeine Use: Reports: Coffee - Living Situation & Occupation Living situation: Reports: (lives with Padmini in [place], [place]. 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 He hurts alot when he takes a deep breath. He feels like this started yesterday. He had a documented pneumonia 1 month ago. He was on doxycyline and did get good improvement with that 1 monthag. Pt only had 5 days after he left the hosp. Exam Limited By: No Limitations General Appearance: Alert, Moderate Distress, Other ( hurts alot when he takes a deep breath. ) Ears: Normal TMs Nose: Normal Inspection Throat/Mouth: Normal Inspection Head: Atraumatic Neck: Normal Inspection Respiratory/Chest: No Respiratory Distress Cardiovascular: Regular Rate, Rhythm GI/Abdominal: Soft, Non-Tender (Male) Exam: Deferred Rectal (Males) Exam: Deferred Back Exam: Normal Inspection Extremities: Normal Inspection Neurological: Alert, Oriented, Normal Cognition Course - Vital Signs Last Recorded V/S: Last Vital Signs Temp 36.4 C 02/10/21 08:08 Pulse 72 02/10/21 08:08 Resp 18 02/10/21 08:08 BP 126/85 02/10/21 08:08 Pulse Ox 95 02/10/21 08:08 - Orders/Labs/Meds Labs: Laboratory Tests 02/10/21 02/10/21 02/10/21 Range/Units 08:20 08:20 08:20 WBC 9.5 (4.5-11.0) K/uL RBC 4.32 (4.30-5.90) M/uL Hgb 13.1 (12.0-15.0) g/dL Hct 40.4 (40.0-54.0) % MCV 94 (80-98) fL MCH 30 (27-31) pg MCHC 32 (32-36) % Plt Count 284 (150-400) K/uL Neut % (Auto) 80.0 H (36-66) % Lymph % (Auto) 7.0 L (24-44) % Chambers % (Auto) 10.5 H (2-6) % Eos % (Auto) 2.2 (2-4) % Baso % (Auto) 0.3 (0-1) % D-Dimer, Quantitative (0.0-500.0) ng/mL Sodium 140 (140-148) mmol/L Potassium 4.7 (3.6-5.2) mmol/L Chloride 101 (100-108) mmol/L Carbon Dioxide 31 (21-32) mmol/L Anion Gap 8.0 (5.0-14.0) mmol/L BUN 18 (7-18) mg/dL Creatinine 1.0 (0.8-1.3) mg/dL Est Cr Clr Drug Dosing 83.23 mL/min Estimated GFR (MDRD) > 60 (>60) Glucose 106 (74-106) mg/dL Calcium 8.9 (8.5-10.1) mg/dL Total Bilirubin 0.4 D (0.2-1.0) mg/dL AST 22 (15-37) U/L ALT 23 (12-78) U/L Alkaline Phosphatase 83 (46-116) U/L C-Reactive Protein 2.85 H (0.0-0.3) mg/dL Total Protein 7.4 (6.4-8.2) g/dL Albumin 3.3 L (3.4-5.0) g/dL Globulin 4.1 H (2.3-3.5) g/dL Albumin/Globulin Ratio 0.8 L (1.2-2.2) 02/10/21 Range/Units 08:20 WBC (4.5-11.0) K/uL RBC (4.30-5.90) M/uL Hgb (12.0-15.0) g/dL Hct (40.0-54.0) % MCV (80-98) fL MCH (27-31) pg MCHC (32-36) % Plt Count (150-400) K/uL Neut % (Auto) (36-66) % Lymph % (Auto) (24-44) % Chambers % (Auto) (2-6) % Eos % (Auto) (2-4) % Baso % (Auto) (0-1) % D-Dimer, Quantitative 970.71 H (0.0-500.0) ng/mL Sodium (140-148) mmol/L Potassium (3.6-5.2) mmol/L Chloride (100-108) mmol/L Carbon Dioxide (21-32) mmol/L Anion Gap (5.0-14.0) mmol/L BUN (7-18) mg/dL Creatinine (0.8-1.3) mg/dL Est Cr Clr Drug Dosing mL/min Estimated GFR (MDRD) (>60) Glucose (74-106) mg/dL Calcium (8.5-10.1) mg/dL Total Bilirubin (0.2-1.0) mg/dL AST (15-37) U/L ALT (12-78) U/L Alkaline Phosphatase (46-116) U/L C-Reactive Protein (0.0-0.3) mg/dL Total Protein (6.4-8.2) g/dL Albumin (3.4-5.0) g/dL Globulin (2.3-3.5) g/dL Albumin/Globulin Ratio (1.2-2.2) Meds: Medications Discontinued Medications Generic Name Dose Route Start Last Admin Trade Name Freq PRN Reason Stop Dose Admin Sodium Chloride 100 mls @ 4 mls/sec 02/10/21 09:45 02/10/21 10:09 Normal Saline IV 02/10/21 10:00 4 mls/sec ASDIRECTED FERNANDO Administration Iopamidol 100 ml 02/10/21 09:45 02/10/21 10:09 Iopamidol 755 Mg/Ml 100 Ml Bottle IV 02/10/21 10:00 100 ml . DIRECTED FERNANDO Administration Ketorolac Tromethamine 30 mg 02/10/21 09:20 02/10/21 10:24 Ketorolac 30 Mg/Ml Sdv IVPUSH 02/10/21 09:21 30 mg ONETIME ONE Administration Sodium Chloride 10 ml 02/10/21 09:45 02/10/21 10:09 Sodium Chloride 0.9% 10 Ml Syringe FLUSH 02/10/21 10:00 10 ml ONETIME PRN Administration per radiology protocol - Re-Assessments/Exams Free Text/Narrative Re-Assessment/Exam: 02/10/21 11:28 Chest xray did show a possible new uppwe lobe infiltrate. A angio of the chest was obtained. He did have a elevated ddimer. The cat scan did show a new infiltrate in the left upper lobe and a residual in the lower lobe where is other pneumonia was. Departure - Departure Time of Disposition: 11:20 Disposition: Home, Self-Care 01 Condition: Fair Clinical Impression: Recurrent pneumonia - Discharge Information Instructions: Community-Acquired Pneumonia, Adult, [place] Referrals: Merary Villanueva MD [Primary Care Provider] - Forms: ED Department Discharge Care Plan Goals: cool mist humidifier, motrin 400mg tid for 5-6 days dfor pleuritic chest pain and inflamation, doxycyline 100mg bid for [address] Villanueva for 1 week. Sepsis Event Note (ED) - Evaluation Sepsis Screening Result: No Definite Risk
[2021-02-10] MEDS ORDERED: Ketorolac 30 MG/ML SDV IVPUSH ONE (09:20)
[2021-02-10] MEDS ORDERED: Sodium Chloride 0.9% 10 ML Syringe FLUSH PRN (09:45)
[2021-02-10] MEDS ORDERED: Iopamidol 755 Mg/ML 100 ML Bottle IV SCH (09:45)
[2021-02-10] MEDS ORDERED: Sodium Chloride 0.9% 100 ML IV SCH (09:45)
--- NOTE | 2021-02-10 10:44 | CRLCT ---
For Patients: As a result of the Century Cures Act, medical imaging exams and procedure reports are released immediately into your electronic medical record. You may view this report before your referring provider. If you have questions, please contact your health care provider. INDICATION: pleuritic chest pain HISTORY: Pleuritic chest pain. COMPARISON: 01/15/2021. TECHNIQUE: CT pulmonary angiogram. 100 cc of Isovue-370 IV. Coronal/sagittal reconstruction images. FINDINGS: No pulmonary emboli are demonstrated. No evidence for right heart strain. No pulmonary infarct. Nonenlarged lymph nodes are present at stations 3A, 4R, and 4L. There is no pleural or pericardial effusion. There is no displaced intimal calcification or dissection flap. No mass is seen in the thoracic inlet. The lung windows demonstrate extensive infiltrates bilaterally, which are most confluent in the left lower lobe, and are of ground-glass attenuation with mild, smooth interlobular septal thickening. There are regions of masslike consolidation in the left upper lobe, with the largest region measuring 2.5 x 2.2 cm in AP and transverse dimensions. There is no honeycomb formation. Patchy infiltrates are also present in the right middle and lower lobes. There is no pneumothorax. There are a few small perifissural nodules. Overall, pulmonary infiltrates have improved when compared with 01/15/2021, although new nodular infiltrates in the left upper lobe are present. Evaluation of the upper abdomen demonstrates no adrenal mass. There is no hydronephrosis. There is no perinephric edema. The spleen size is normal. There is no pancreatic mass or glandular atrophy. There is a subtle low-density lesion in segment VIII of the liver, which measures 13 mm in image 130, series 11. This can be further assessed with ultrasound on a nonemergent basis. Osteophytic spurring at the endplates of the thoracic spine. There are no suspicious bone lesions by CT. The vertebral body heights are maintained on sagittal reconstruction images. IMPRESSION: 1. No pulmonary emboli. 2. No findings on CT for right heart strain. No pulmonary infarct. 3. Pulmonary infiltrates, with overall improvement when compared with 01/15/2021. 4. Nodular regions of masslike consolidation in the left upper lobe are new. 5. Given the time course, an infectious etiology is suspected. 6. Radiographic followup is advised until complete resolution is documented. Dictated by Nasim Rudd MD @ 02/10/2021 10:43:02 AM Please note that all CT scans at this facility use dose modulation, iterative reconstruction, and/or weight-based dosing when appropriate to reduce radiation dose to as low as reasonably achievable. Dictated by: Nasim Rudd MD @ 02/10/2021 10:43:22 (Electronically Signed)
--- NOTE | 2021-02-11 09:54 | CR ---
CHEST: 2 view CLINICAL HISTORY:Pleuritic chest pain COMPARISON:CT 01/15/2021 FINDINGS: There is patchy lingular infiltrate. There is a 2.3 cm ovoid density in the left upper lobe. There was some infiltrate and consolidation in this area on the prior CT. Underlying mass is not excluded. Heart and pulmonary vascularity are normal. IMPRESSION: Residual lingular pneumonic infiltrate Nodular density in the left upper lobe may represent some residual consolidation. Underlying neoplasm is not excluded. Follow-up CT chest recommended after course of treatment
== END 2021-02-10 11:52 | disposition home or self-care (01) ==
LOC: JP.ED 07:44
DX: J18.9 Pneumonia, unspecified organism (principal); M19.90 Unspecified osteoarthritis, unspecified site
CPT/HCPCS: 36415; 71046; 71275; 80053; 85025; 85379; 86140; 96374; 99285; J1885; Q9967

== ENCOUNTER 2021-05-30 05:26 | Day surgery (SDC) | payer MEDICARE, BC ==
[2021-05-30] MEDS ORDERED: Propofol 200 MG/20 ML SDV ONE (06:45)
[2021-05-30] MEDS ORDERED: Lidocaine 2% 5 ML SDV ONE (06:45)
[2021-05-30] MEDS ORDERED: Dextrose 5%-Lactated Ringers 1,000 ML IV SCH (07:00)
[2021-05-30] MEDS ORDERED: Glycopyrrolate 0.2 MG/ML 2 ML SDV IVPUSH ONE (07:15)
[2021-05-30] MEDS ORDERED: Pantoprazole 40 MG Vial IVPUSH ONE (07:39)
--- NOTE | 2021-05-31 12:24 | OR ---
DATE OF PROCEDURE: 05/30/2021 SURGEON: Leighton Tena MD PREOPERATIVE DIAGNOSIS: Recurrent aspiration pneumonia associated with laryngopharyngeal dysphagia, and recurrent aspiration pneumonia. POSTOPERATIVE DIAGNOSES: 1. Recurrent aspiration pneumonia associated with laryngopharyngeal dysphagia, and recurrent aspiration pneumonia. 2. Small hiatal hernia with active ulcerative gastroesophageal reflux disease. 3. Mild antral gastritis. OPERATIVE PROCEDURES: Esophagogastroduodenoscopy with: 1. Biopsies of esophagogastric junction for histologic evaluation. 2. Biopsies of antrum for CLOtest. ANESTHESIA: IV sedation. INDICATIONS FOR PROCEDURE: This is a 66-year-old status post treatment of tonsillar carcinoma with surgery and radiation. The patient had recently problems with recurrent aspiration Speech Pathology and on his x-ray swallow study was noted to aspirate liquids of all consistencies, and he has been started on a diet consisting primarily more of soft solids. With this, he and his think he is doing a little bit better and has not had pneumonia since initiating that diet. Question arises is there any component of gastroesophageal reflux disease with some occult aspiration of esophageal contents perhaps at night that might also be contributing to the patient's symptoms. Given this, he is to undergo an upper endoscopy with biopsies and/or dilation as indicated. Potential risks of the procedure including bleeding and perforation were discussed, and the patient wishes to proceed. DETAILS OF PROCEDURE: The patient was taken to the operating room and placed in a left lateral decubitus position. IV sedation was administered after which the upper GI endoscope was passed orally through the length of esophagus into the stomach with retroflexion view of the fundus and thereafter through the pyloric channel to the junction of the 2nd and 3rd portions of the duodenum. Findings included post treatment findings within the hypopharynx and larynx consisting of the tonsillar removal and some general reddening and friability of the mucosa likely related to long-term radiation effects. The scope was able to be passed into the esophagus. There was no stricturing of the upper esophageal sphincter or upper esophagus which would sometimes happen with head and neck radiation but then none of this was seen in this case. Within the more distal esophagus, there was a small hiatal hernia measuring 1 to 2 cm but quite active ulcerative esophagitis extending up to around 6 cm above the mucosa of esophagogastric junction. No stricturing per se was seen in the EG junction. In the stomach, there was some mild patchy redness, but without ulcers or erosions. The visualized portions of the duodenum were unremarkable. At this point, biopsies were obtained from the antrum and sent for CLOtest for H pylori. Multiple biopsies were then obtained from esophagogastric junction and sent for histologic evaluation. Minimal bleeding from the biopsy site was seen, and the procedure was then concluded. We will begin treating the patient for reflux esophagitis in hopes this might somehow will be helpful with regard to his pulmonary symptoms. He will be given Protonix 40 mg IV in the recovery room and then Protonix 40 mg q.a.m. He will be following up with Dr. Merary Villanueva in [facility] in one month. Leighton Tena MD /[id number]
== END 2021-05-30 08:47 | disposition home or self-care (01) ==
LOC: JP.SDS 05:26
PROVIDERS: ATTEND Surgery
DX: R13.13 Dysphagia, pharyngeal phase (principal); J69.0 Pneumonitis due to inhalation of food and vomit; K44.9 Diaphragmatic hernia without obstruction or gangrene; K21.00 Gastro-esophageal reflux disease with esophagitis, without bleeding
CPT/HCPCS: 43239; 87081; C9113; J2704; J3490; J7121

== ENCOUNTER 2021-07-11 18:34 | Emergency (ER) | payer MEDICARE, BC ==
--- NOTE | 2021-07-11 19:13 | EDM.PDOC ---
ED HPI GENERAL MEDICAL PROBLEM - General Chief Complaint: Respiratory Problem Stated Complaint: SOB, CHEST PAIN Time Seen by Provider: 07/11/21 18:59 Source of Information: Reports: Patient, Old Records History Limitations: Reports: No Limitations - History of Present Illness INITIAL COMMENTS - FREE TEXT/NARRATIVE: Andrew is a 66-year-old male presenting to the ED with concerns that he may have contracted pneumonia or Covid again. Patient had COVID-19 in January of this year resulting in Covid pneumonitis. Since then he has had recurrent episodes of pneumonia. He is currently being worked up for dysphagia with Lisa and is scheduled on Thursday to undergo an MRI of the brain in [place]. They are unsure if he had a stroke or another neuromuscular problem going on contributing to this condition. In addition to this, the patient does have significant dysarthria. At times it is somewhat difficult to understand what he saying especially through a mask. Patient reports that he started having chills earlier this afternoon and his gave him ibuprofen and aspirin. He said he went to bed under several blankets and his fever seemed to go away. He has had intermittent episodes of significant chest pain accompanied by shortness of breath and cough. He is concerned that he has again contracted pneumonia and wants to catch it early so that he can start treatment early. - Related Data Allergies Allergy/AdvReac Type Severity Reaction Status Date / Time No Known Allergies Allergy Verified 05/30/21 05:57 Home Meds: Home Meds NK [No Known Home Meds] 05/30/21 [History] Past Medical History HEENT History: Reports: None Respiratory History: Reports: Pneumonia, Recurrent Gastrointestinal History: Reports: Other (See Below) Other Gastrointestinal History: Inguinal hernia that pt reduces himself as needed Musculoskeletal History: Reports: Arthritis Psychiatric History: Reports: Other (See Below) Other Psychiatric History: undiagnoised but pt thinks he might have anxiety Oncologic (Cancer) History: Reports: Other (See Below) Other Oncologic History: tonsils Dermatologic History: Reports: Eczema - Infectious Disease History Infectious Disease History: Reports: Mononucleosis, Novel Coronavirus - Past Surgical History HEENT Surgical History: Reports: Tonsillectomy Respiratory Surgical History: Reports: None GI Surgical History: Reports: None Musculoskeletal Surgical History: Reports: None Oncologic Surgical History: Reports: None Dermatological Surgical History: Reports: None Social & Family History - Family History Family Medical History: No Pertinent Family History - Tobacco Use Tobacco Use Status *Q: Never Tobacco User - Caffeine Use Caffeine Use: Reports: Coffee - Living Situation & Occupation Living situation: Reports: (lives with Padmini in [place], [place]. 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.) ED ROS GENERAL - Review of Systems Review Of Systems: See Below Constitutional: Reports: Chills, Weakness, Decreased Appetite HEENT: Reports: Rhinitis, Sinus Problem Respiratory: Reports: Shortness of Breath, Cough Cardiovascular: Reports: Chest Pain Endocrine: Reports: No Symptoms GI/Abdominal: Reports: Nausea : Reports: No Symptoms Musculoskeletal: Reports: No Symptoms Skin: Reports: No Symptoms Neurological: Reports: No Symptoms Psychiatric: Reports: Anxiety Hematologic/Lymphatic: Reports: No Symptoms Immunologic: Reports: No Symptoms ED EXAM, GENERAL - Physical Exam Exam: See Below Exam Limited By: No Limitations General Appearance: Alert, Anxious, Mild Distress Eye Exam: Bilateral Eye: EOMI, PERRL Nose: Nasal Swelling, Nasal Drainage, Clear Rhinorrhea Throat/Mouth: Normal Inspection, Normal Oropharynx, Normal Voice, No Airway Compromise Head: Atraumatic, Normocephalic Neck: Normal Inspection, Supple Respiratory/Chest: No Respiratory Distress, No Accessory Muscle Use, Rhonchi (Bibasilar) Cardiovascular: Normal Peripheral Pulses, Regular Rate, Rhythm, No Murmur GI/Abdominal: Normal Bowel Sounds, Soft, Non-Tender, No Distention. No: Guarding, Rebound Back Exam: Normal Inspection, Full Range of Motion Extremities: Normal Inspection, Normal Range of Motion, No Pedal Edema Neurological: Alert, Oriented, CN II-XII Intact, Normal Cognition, No Motor/Sensory Deficits, Other (Significant dysarthria) Psychiatric: Normal Affect, Anxious Skin Exam: Warm, Dry, Intact, Normal Color. No: Cyanosis Course - Vital Signs Last Recorded V/S: Last Vital Signs Temp 37.2 C 07/11/21 18:53 Pulse 102 H 07/11/21 18:53 Resp 17 07/11/21 18:53 BP 114/67 07/11/21 18:53 Pulse Ox 95 07/11/21 18:53 - Orders/Labs/Meds Orders: Active Orders 24 hr Category Date Time Status Chest 1V Frontal [CR] Stat Exams 12/30/21 19:02 Taken Isolation [COMM] Stat Oth 07/11/21 19:02 Ordered EKG 12 Lead [EK] Routine Ther 07/11/21 19:01 Ordered Labs: Laboratory Tests 07/11/21 07/11/21 07/11/21 Range/Units 19:01 19:14 19:14 WBC 19.3 H (4.5-11.0) K/uL RBC 4.23 L (4.30-5.90) M/uL Hgb 12.4 (12.0-15.0) g/dL Hct 38.3 L (40.0-54.0) % MCV 91 (80-98) fL MCH 29 (27-31) pg MCHC 32 (32-36) % Plt Count 282 (150-400) K/uL Neut % (Auto) 89.9 H (36-66) % Lymph % (Auto) 2.7 L (24-44) % [place] % (Auto) 6.4 H (2-6) % Eos % (Auto) 0.9 L (2-4) % Baso % (Auto) 0.1 (0-1) % Sodium 138 L (140-148) mmol/L Potassium 4.4 (3.6-5.2) mmol/L Chloride 101 (100-108) mmol/L Carbon Dioxide 27 (21-32) mmol/L Anion Gap 14.4 H (5.0-14.0) mmol/L BUN 28 H D (7-18) mg/dL Creatinine 1.2 (0.8-1.3) mg/dL Est Cr Clr Drug Dosing 67.36 mL/min Estimated GFR (MDRD) > 60 (>60) Glucose 143 H (74-106) mg/dL Lactic Acid (0.4-2.0) mmol/L Calcium 8.9 (8.5-10.1) mg/dL Ferritin 260 (8-388) ng/ml Total Bilirubin 0.4 (0.2-1.0) mg/dL AST 19 (15-37) U/L ALT 24 (12-78) U/L Alkaline Phosphatase 89 (46-116) U/L Lactate Dehydrogenase 138 (85-227) U/L Troponin I High Sens 6.7 (<=60.3) pg/mL C-Reactive Protein 4.63 H (0.0-0.3) mg/dL Total Protein 7.1 (6.4-8.2) g/dL Albumin 3.6 (3.4-5.0) g/dL Globulin 3.5 (2.3-3.5) g/dL Albumin/Globulin Ratio 1.0 L (1.2-2.2) Procalcitonin ng/mL Influenza Type A RNA Negative (NEGATIVE) RSV RNA (INAAT) Negative (NEGATIVE) Influenza Type B RNA Negative (NEGATIVE) SARS-CoV-2 RNA (RYDER) Negative (NEGATIVE) 07/11/21 07/11/21 Range/Units 19:14 19:14 WBC (4.5-11.0) K/uL RBC (4.30-5.90) M/uL Hgb (12.0-15.0) g/dL Hct (40.0-54.0) % MCV (80-98) fL MCH (27-31) pg MCHC (32-36) % Plt Count (150-400) K/uL Neut % (Auto) (36-66) % Lymph % (Auto) (24-44) % [place] % (Auto) (2-6) % Eos % (Auto) (2-4) % Baso % (Auto) (0-1) % Sodium (140-148) mmol/L Potassium (3.6-5.2) mmol/L Chloride (100-108) mmol/L Carbon Dioxide (21-32) mmol/L Anion Gap (5.0-14.0) mmol/L BUN (7-18) mg/dL Creatinine (0.8-1.3) mg/dL Est Cr Clr Drug Dosing mL/min Estimated GFR (MDRD) (>60) Glucose (74-106) mg/dL Lactic Acid 1.0 (0.4-2.0) mmol/L Calcium (8.5-10.1) mg/dL Ferritin (8-388) ng/ml Total Bilirubin (0.2-1.0) mg/dL AST (15-37) U/L ALT (12-78) U/L Alkaline Phosphatase (46-116) U/L Lactate Dehydrogenase (85-227) U/L Troponin I High Sens (<=60.3) pg/mL C-Reactive Protein (0.0-0.3) mg/dL Total Protein (6.4-8.2) g/dL Albumin (3.4-5.0) g/dL Globulin (2.3-3.5) g/dL Albumin/Globulin Ratio (1.2-2.2) Procalcitonin 0.29 ng/mL Influenza Type A RNA (NEGATIVE) RSV RNA (INAAT) (NEGATIVE) Influenza Type B RNA (NEGATIVE) SARS-CoV-2 RNA (RYDER) (NEGATIVE) - Radiology Interpretation Free Text/Narrative:: Reviewed the portable x-ray 1 view chest demonstrating infiltrates in the left lower lobe consistent with a developing pneumonia. - Re-Assessments/Exams Free Text/Narrative Re-Assessment/Exam: 07/11/21 20:32 I reviewed Andrew's labs showing a significant leukocytosis at 19.3 which is 90% neutrophils, hemoglobin of 12.4 and a platelet count of 202,000. The patient's comprehensive metabolic panel shows a sodium 138, potassium of 4.4, chloride of 101, bicarbonate 27, BUN of 28 with a creatinine 1.2 and a glucose of 143. AST, ALT, and alkaline phosphatase are all normal. The patient is negative for Covid, influenza, and RSV. His ferritin is 260, LDH is 138, lactate is 1.0 and his CRP is 4.63. The chest x-ray reveals scattered infiltrates in the left lower lobe consistent with a developing pneumonia. This and the elevated leukocytosis makes sense with a developing pneumonia. We will start the patient on Levaquin 500 mg a day for 10 days. Indications return to the ED were discussed and patient is discharged in satisfactory condition. Departure - Departure Time of Disposition: 20:35 Disposition: Home, Self-Care 01 Clinical Impression: Left lower lobe pneumonia Qualifiers: Pneumonia type: due to unspecified organism Qualified Code(s): J18.9 - Pneumonia, unspecified organism - Discharge Information Instructions: Community-Acquired Pneumonia, Adult, [id number] Referrals: Merary Villanueva MD [Primary Care Provider] - Forms: ED Department Discharge Care Plan Goals: Your work-up today shows that you are in fact developing a left lower lobe pneumonia. We are going to start you on Levaquin 500 mg daily for 10 days. This has been sent out to the [id number] machine so that she may start it tonight. Please take cough medicine of choice for your congestion. An expectorant would be beneficial like Robitussin-DM or Dimetapp DM. Continue to take ibuprofen, Tylenol, or Aleve for your fever and push plenty of fluids. Return to the ED should you develop significant shortness of breath or require oxygen. Sepsis Event Note (ED) - Evaluation Sepsis Screening Result: No Definite Risk - Focused Exam Vital Signs: Vital Signs Temp Pulse Resp BP Pulse Ox 07/11/21 18:53 37.2 C 102 H 17 114/67 95 - Problem List & Annotations (1) Left lower lobe pneumonia SNOMED Code(s): 100363014 Code(s): J18.9 - PNEUMONIA, UNSPECIFIED ORGANISM Status: Acute Priority: High Current Visit: Yes Qualifiers: Pneumonia type: due to unspecified organism Qualified Code(s): J18.9 - Pneumonia, unspecified organism - Problem List Review Problem List Initiated/Reviewed/Updated: Yes - My Orders Last 24 Hours: My Active Orders 07/11/21 19:01 EKG 12 Lead [EK] Routine 07/11/21 19:02 Chest 1V Frontal [CR] Stat Isolation [COMM] Stat - Assessment/Plan Last 24 Hours: My Active Orders 07/11/21 19:01 EKG 12 Lead [EK] Routine 07/11/21 19:02 Chest 1V Frontal [CR] Stat Isolation [COMM] Stat
[2021-07-11 19:32] LABS: CORONAVIRUS COVID-19 NAA NEGATIVE (NEGATIVE)
--- NOTE | 2021-07-12 09:14 | CR ---
CHEST: Portable 07/11/2021 at 7:25 PM CLINICAL HISTORY:Dyspnea COMPARISON:CT 05/13/2021 FINDINGS: There is generalized emphysematous change. There is patchy density in the left lower lung likely involving both the lingula and left lower lobe. This has increased when compared to the May CT. Infiltrate was also seen in this area and February 2021 chest x-ray. Heart and pulmonary vascularity appear normal Impression: Moderate emphysematous change Left lower lung scarring and fibrosis as well as superimposed infiltrate which may be chronic and/or recurrent. Patient has a history of aspiration
== END 2021-07-11 20:47 | disposition home or self-care (01) ==
LOC: JP.ED 18:34
DX: J18.9 Pneumonia, unspecified organism (principal); Z20.822 Contact with and (suspected) exposure to COVID-19
CPT/HCPCS: 0241U; 36415; 71045; 71045-26; 80053; 82728; 83605; 83615; 84145; 84484; 85025; 86140; 93005; 99285-25

== ENCOUNTER 2022-05-15 06:55 | Day surgery (SDC) | payer MEDICARE, BC ==
[~2022-05-15 06:55] MED LIST: Bupivacaine 0.5% 50 ML MDV ONE; Lidocaine 1% with EPINEPHrine 1:100,000 50 ML MDV ONE
[2022-05-15] MEDS ORDERED: Acetaminophen 500 MG Tab PO ONE (07:30)
[2022-05-15] MEDS ORDERED: Dextrose 5%-Lactated Ringers 1,000 ML IV SCH (07:45)
[2022-05-15] MEDS ORDERED: ceFAZolin 2 GM in Sodium Chloride 0.9% 50 ML IV ONE (08:30)
[2022-05-15] MEDS ORDERED: Midazolam 1 MG/ML 2 ML SDV ONE (09:00)
[2022-05-15] MEDS ORDERED: Propofol 200 MG/20 ML SDV ONE ×2 (09:00→10:00)
[2022-05-15] MEDS ORDERED: fentaNYL 100 MCG/2 ML SDV ONE (09:00)
[2022-05-15] MEDS ORDERED: Naloxone 0.4 MG/ML SDV ONE (09:26)
[2022-05-15] MEDS ORDERED: fentaNYL 50 MCG/ML SDV IVPUSH ONE (11:05)
[2022-05-15] MEDS ORDERED: traMADol 50 MG Tab PO PRN (12:36)
== END 2022-05-15 13:35 | disposition home or self-care (01) ==
LOC: JP.SDS 06:55
PROVIDERS: ATTEND Surgery
DX: K40.30 Unilateral inguinal hernia, with obstruction, without gangrene, not specified as recurrent (principal); G57.82 Other specified mononeuropathies of left lower limb; E03.9 Hypothyroidism, unspecified; Z79.899 Other long term (current) drug therapy; Z79.890 Hormone replacement therapy
CPT/HCPCS: 88302; A9270-GY; C1713; C1781; J2250; J2310; J2704; J3010; J3490; J7121

== ENCOUNTER 2022-06-16 15:43 | Emergency (ER) | payer MEDICARE, BC ==
[2022-06-16] MEDS ORDERED: Sodium Chloride 0.9% 10 ML Syringe FLUSH PRN (16:50)
[2022-06-16] MEDS ORDERED: Albuterol/Ipratropium 3.0-0.5 MG/3 ML Neb Soln NEB ONE (17:28)
[2022-06-16 17:47] LABS: CORONAVIRUS COVID-19 NAA NEGATIVE (NEGATIVE)
== END 2022-06-16 18:44 | disposition home or self-care (01) ==
LOC: JP.ED 15:43
DX: J43.9 Emphysema, unspecified (principal); K11.7 Disturbances of salivary secretion; R13.10 Dysphagia, unspecified; E03.9 Hypothyroidism, unspecified; Z79.899 Other long term (current) drug therapy; Z20.822 Contact with and (suspected) exposure to COVID-19
CPT/HCPCS: 0241U; 36415; 71046; 80048; 83605; 84145; 84484; 85025; 86140; 87040; 94640; 99285; J3490; J7620

== ENCOUNTER 2025-02-07 10:12 | Inpatient (IN) | payer MEDICARE, BC ==
[2025-02-07 10:44] LABS: PLATELET COUNT,PLT 265 K/uL (130-375); RED BLOOD CELL COUNT 3.44 M/uL (4.14-5.76); WHITE BLOOD CELL COUNT,WBC 17.3 K/uL (3.2-11.0)
[2025-02-07 10:53] LABS: BASE EXCESS VENOUS 5.2 mm/L; BICARBONATE,VENOUS 30.3 mmol/L; O2 SATURATION VENOUS 37.1; OXYHEMOGLOBIN 35.9 %; PCO2 VENOUS 48.9 mm/Hg; PH,VENOUS 7.409 (7.350-7.450); TOTAL HEMOGLOBIN 11.1 g/dL (13.5-18.0)
[2025-02-07 10:54] LABS: PO2 VENOUS 24.0 mm/Hg
[2025-02-07 11:08] LABS: BAND ABSOLUTE MAN 1.04 K/uL; BAND PERCENT MAN 6 % (5-11); LYMPHOCYTES ABSOLUTE MAN 0.69 K/uL (0.8-3.3); LYMPHOCYTES PERCENT MAN 4 % (24-44); MONOCYTES ABSOLUTE MAN 0.87 K/uL (0.20-0.90); MONOCYTES PERCENT MAN 5 % (2-6); NEUTROPHILS ABSOLUTE MAN 14.71 K/uL (1.0-7.6); SEG NEUTROPHILS PERCENT MAN 85 % (36-66)
[2025-02-07 11:13] LABS: LACTIC ACID 1.1 mmol/L (0.4-2.0)
[2025-02-07] MEDS: Azithromycin 500 MG in Sodium Chloride 0.9% 150 ML IV ONE (11:24)
[2025-02-07 11:29] LABS: A/G RATIO 0.6 (1.2-2.2); ALANINE AMINOTRANSFERASE,ALT 21 U/L (12-78); ASPARTATE AMNIOTRANSFERASE,AST 13 U/L (15-37); BILIRUBIN TOTAL 0.5 mg/dL (0.2-1.0); BLOOD UREA NITROGEN,BUN 32 mg/dL (7-18); CARBON DIOXIDE,CO2 32 mmol/L (21-32); CHLORIDE,CL 101 mmol/L (100-108); CREATININE 1.0 mg/dL (0.8-1.3); EST CRCL DRUG DOSING (CG) 61.73 mL/min; ESTIMATED GFR 81 mL/min (>60); GLUCOSE RANDOM 116 mg/dL (74-106); POTASSIUM,K 4.4 mmol/L (3.6-5.2); PROTEIN TOTAL,TP 6.6 g/dL (6.4-8.2); SODIUM,NA 137 mmol/L (140-148)
[2025-02-07] MEDS: Norepinephrine Bit/D5W Premix 4 MG in Premix Bag 1 BAG IV SCH (11:37)
[2025-02-07 12:49] LABS: APPEARANCE,URINE CLEAR (CLEAR); GLUCOSE,URINE NEGATIVE (NEGATIVE); OCCULT BLOOD,URINE TRACE-INTACT (NEGATIVE)
[2025-02-07 12:54] LABS: SQUAMOUS EPITHELIAL CELLS,UR FEW /HPF; UROTHELIAL CELLS,URINE NOT SEEN /HPF
[2025-02-07] MEDS: Hydrocortisone Sodium Succinate 100 MG/2 ML SDV IVPUSH SCH (16:04)
[2025-02-07] MEDS: Piperacillin/Tazobactam/Dext 4.5 GM in Premix Bag 1 BAG IV ONE (16:05)
[2025-02-07] MEDS: Sodium Chloride 0.9% 10 ML Syringe FLUSH ONE (19:21)
[2025-02-07] MEDS: Iopamidol 755 Mg/ML 100 ML Bottle IV ONE (19:21)
[2025-02-07] MEDS: Piperacillin/Tazobactam/Dext 4.5 GM in Premix Bag 1 BAG IV SCH (20:10)
[2025-02-08 05:11] LABS: PLATELET COUNT,PLT 326 K/uL (130-375); RED BLOOD CELL COUNT 3.99 M/uL (4.14-5.76); WHITE BLOOD CELL COUNT,WBC 22.0 K/uL (3.2-11.0)
[2025-02-08 05:28] LABS: BAND ABSOLUTE MAN 1.54 K/uL; BAND PERCENT MAN 7 % (5-11); LYMPHOCYTES ABSOLUTE MAN 0.44 K/uL (0.8-3.3); LYMPHOCYTES PERCENT MAN 2 % (24-44); MONOCYTES ABSOLUTE MAN 0.22 K/uL (0.20-0.90); MONOCYTES PERCENT MAN 1 % (2-6); NEUTROPHILS ABSOLUTE MAN 19.80 K/uL (1.0-7.6); SEG NEUTROPHILS PERCENT MAN 90 % (36-66)
[2025-02-08 05:31] LABS: A/G RATIO 0.5 (1.2-2.2); ALANINE AMINOTRANSFERASE,ALT 20 U/L (12-78); ASPARTATE AMNIOTRANSFERASE,AST 14 U/L (15-37); BILIRUBIN TOTAL 0.6 mg/dL (0.2-1.0); BLOOD UREA NITROGEN,BUN 26 mg/dL (7-18); CARBON DIOXIDE,CO2 32 mmol/L (21-32); CHLORIDE,CL 103 mmol/L (100-108); CREATININE 1.0 mg/dL (0.8-1.3); EST CRCL DRUG DOSING (CG) 64.86 mL/min; ESTIMATED GFR 81 mL/min (>60); GLUCOSE RANDOM 154 mg/dL (74-106); POTASSIUM,K 4.2 mmol/L (3.6-5.2); PROTEIN TOTAL,TP 6.9 g/dL (6.4-8.2); SODIUM,NA 142 mmol/L (140-148)
[2025-02-09 05:54] LABS: BASOPHILS ABSOLUTE AUTO 0.03 K/uL (0.00-0.10); BASOPHILS PERCENT AUTO 0.1 % (0.1-1.3); EOSINOPHILS PERCENT AUTO 0.0 % (0.0-5.4); IMMATURE GRAN ABSOLUTE AUTO 0.14 K/uL (0.00-0.23); IMMATURE GRAN PERCENT AUTO 0.7 % (0.0-0.7); LYMPHOCYTES ABSOLUTE AUTO 0.78 K/uL (0.8-3.3); LYMPHOCYTES PERCENT AUTO 3.8 % (11.4-47.7); MONOCYTES ABSOLUTE AUTO 1.07 K/uL (0.20-0.90); MONOCYTES PERCENT AUTO 5.2 % (3.3-12.6); NEUTROPHILS ABSOLUTE AUTO 18.38 K/uL (1.0-7.6); NEUTROPHILS PERCENT AUTO 90.2 % (40.0-78.1); PLATELET COUNT,PLT 366 K/uL (130-375); RED BLOOD CELL COUNT 4.01 M/uL (4.14-5.76); WHITE BLOOD CELL COUNT,WBC 20.4 K/uL (3.2-11.0)
[2025-02-09 05:57] LABS: EOSINOPHILS ABSOLUTE AUTO 0.00 K/uL (0.00-0.40)
[2025-02-09 06:25] LABS: A/G RATIO 0.5 (1.2-2.2); ALANINE AMINOTRANSFERASE,ALT 25 U/L (12-78); ASPARTATE AMNIOTRANSFERASE,AST 13 U/L (15-37); BILIRUBIN TOTAL 0.5 mg/dL (0.2-1.0); BLOOD UREA NITROGEN,BUN 31 mg/dL (7-18); CARBON DIOXIDE,CO2 30 mmol/L (21-32); CHLORIDE,CL 106 mmol/L (100-108); CREATININE 1.0 mg/dL (0.8-1.3); EST CRCL DRUG DOSING (CG) 63.20 mL/min; ESTIMATED GFR 81 mL/min (>60); GLUCOSE RANDOM 143 mg/dL (74-106); POTASSIUM,K 4.3 mmol/L (3.6-5.2); PROTEIN TOTAL,TP 6.6 g/dL (6.4-8.2); SODIUM,NA 142 mmol/L (140-148)
[2025-02-10 06:02] LABS: BASOPHILS PERCENT AUTO 0.1 % (0.1-1.3); EOSINOPHILS PERCENT AUTO 0.0 % (0.0-5.4); IMMATURE GRAN ABSOLUTE AUTO 0.13 K/uL (0.00-0.23); IMMATURE GRAN PERCENT AUTO 0.7 % (0.0-0.7); LYMPHOCYTES ABSOLUTE AUTO 0.74 K/uL (0.8-3.3); LYMPHOCYTES PERCENT AUTO 4.1 % (11.4-47.7); MONOCYTES ABSOLUTE AUTO 1.03 K/uL (0.20-0.90); MONOCYTES PERCENT AUTO 5.6 % (3.3-12.6); NEUTROPHILS ABSOLUTE AUTO 16.33 K/uL (1.0-7.6); NEUTROPHILS PERCENT AUTO 89.5 % (40.0-78.1); PLATELET COUNT,PLT 345 K/uL (130-375); RED BLOOD CELL COUNT 3.78 M/uL (4.14-5.76); WHITE BLOOD CELL COUNT,WBC 18.3 K/uL (3.2-11.0)
[2025-02-10 06:08] LABS: BASOPHILS ABSOLUTE AUTO 0.02 K/uL (0.00-0.10); EOSINOPHILS ABSOLUTE AUTO 0.00 K/uL (0.00-0.40)
[2025-02-10 06:26] LABS: A/G RATIO 0.5 (1.2-2.2); ALANINE AMINOTRANSFERASE,ALT 21 U/L (12-78); ASPARTATE AMNIOTRANSFERASE,AST 12 U/L (15-37); BILIRUBIN TOTAL 0.5 mg/dL (0.2-1.0); BLOOD UREA NITROGEN,BUN 29 mg/dL (7-18); CARBON DIOXIDE,CO2 28 mmol/L (21-32); CHLORIDE,CL 106 mmol/L (100-108); CREATININE 0.9 mg/dL (0.8-1.3); EST CRCL DRUG DOSING (CG) 70.22 mL/min; ESTIMATED GFR 92 mL/min (>60); GLUCOSE RANDOM 132 mg/dL (74-106); POTASSIUM,K 3.9 mmol/L (3.6-5.2); PROTEIN TOTAL,TP 6.3 g/dL (6.4-8.2); SODIUM,NA 141 mmol/L (140-148)
[2025-02-10] MEDS ORDERED: fentaNYL 100 MCG/2 ML SDV ONE (11:39)
[2025-02-10] MEDS ORDERED: Propofol 200 MG/20 ML SDV ONE (11:39)
[2025-02-10] MEDS ORDERED: Naloxone 0.4 MG/ML SDV IVPUSH PRN (16:14)
[2025-02-10 17:56] LABS: MRSA DETECTION BY PCR Not Detected
[2025-02-11 06:04] LABS: BASOPHILS PERCENT AUTO 0.1 % (0.1-1.3); EOSINOPHILS PERCENT AUTO 0.2 % (0.0-5.4); IMMATURE GRAN ABSOLUTE AUTO 0.09 K/uL (0.00-0.23); IMMATURE GRAN PERCENT AUTO 0.8 % (0.0-0.7); LYMPHOCYTES ABSOLUTE AUTO 0.93 K/uL (0.8-3.3); LYMPHOCYTES PERCENT AUTO 8.1 % (11.4-47.7); MONOCYTES ABSOLUTE AUTO 0.99 K/uL (0.20-0.90); MONOCYTES PERCENT AUTO 8.7 % (3.3-12.6); NEUTROPHILS ABSOLUTE AUTO 9.39 K/uL (1.0-7.6); NEUTROPHILS PERCENT AUTO 82.1 % (40.0-78.1); PLATELET COUNT,PLT 296 K/uL (130-375); RED BLOOD CELL COUNT 3.45 M/uL (4.14-5.76); WHITE BLOOD CELL COUNT,WBC 11.4 K/uL (3.2-11.0)
[2025-02-11 06:10] LABS: BASOPHILS ABSOLUTE AUTO 0.01 K/uL (0.00-0.10); EOSINOPHILS ABSOLUTE AUTO 0.02 K/uL (0.00-0.40)
[2025-02-11 06:27] LABS: A/G RATIO 0.5 (1.2-2.2); ALANINE AMINOTRANSFERASE,ALT 31 U/L (12-78); ASPARTATE AMNIOTRANSFERASE,AST 23 U/L (15-37); BILIRUBIN TOTAL 0.4 mg/dL (0.2-1.0); BLOOD UREA NITROGEN,BUN 22 mg/dL (7-18); CARBON DIOXIDE,CO2 32 mmol/L (21-32); CHLORIDE,CL 106 mmol/L (100-108); CREATININE 1.0 mg/dL (0.8-1.3); EST CRCL DRUG DOSING (CG) 63.20 mL/min; ESTIMATED GFR 81 mL/min (>60); GLUCOSE RANDOM 110 mg/dL (74-106); POTASSIUM,K 3.0 mmol/L (3.6-5.2); PROTEIN TOTAL,TP 5.4 g/dL (6.4-8.2); SODIUM,NA 141 mmol/L (140-148)
[2025-02-11] MEDS: Potassium Chloride 20 MEQ Tab.ER PO ONE (08:28)
[2025-02-11] MEDS ORDERED: Sodium Chloride 0.9% 10 ML Syringe IV PRN (09:09)
[2025-02-11 14:38] LABS: A/G RATIO 0.6 (1.2-2.2); ALANINE AMINOTRANSFERASE,ALT 33 U/L (12-78); ASPARTATE AMNIOTRANSFERASE,AST 25 U/L (15-37); BILIRUBIN TOTAL 0.3 mg/dL (0.2-1.0); BLOOD UREA NITROGEN,BUN 23 mg/dL (7-18); CARBON DIOXIDE,CO2 32 mmol/L (21-32); CHLORIDE,CL 106 mmol/L (100-108); CREATININE 0.9 mg/dL (0.8-1.3); EST CRCL DRUG DOSING (CG) 75.59 mL/min; ESTIMATED GFR 92 mL/min (>60); GLUCOSE RANDOM 113 mg/dL (74-106); PHOSPHORUS 2.7 mg/dL (2.5-4.9); POTASSIUM,K 3.3 mmol/L (3.6-5.2); PROTEIN TOTAL,TP 5.8 g/dL (6.4-8.2); SODIUM,NA 141 mmol/L (140-148)
[2025-02-12 07:58] LABS: PLATELET COUNT,PLT 303.0 K/uL (130-375); RED BLOOD CELL COUNT 3.49 M/uL (4.14-5.76); WHITE BLOOD CELL COUNT,WBC 10.7 K/uL (3.2-11.0)
[2025-02-12 08:19] LABS: A/G RATIO 0.5 (1.2-2.2); ALANINE AMINOTRANSFERASE,ALT 30 U/L (12-78); ASPARTATE AMNIOTRANSFERASE,AST 17 U/L (15-37); BILIRUBIN TOTAL 0.4 mg/dL (0.2-1.0); BLOOD UREA NITROGEN,BUN 16 mg/dL (7-18); CARBON DIOXIDE,CO2 35 mmol/L (21-32); CHLORIDE,CL 105 mmol/L (100-108); CREATININE 0.9 mg/dL (0.8-1.3); EST CRCL DRUG DOSING (CG) 75.59 mL/min; ESTIMATED GFR 92 mL/min (>60); GLUCOSE RANDOM 122 mg/dL (74-106); PROTEIN TOTAL,TP 5.5 g/dL (6.4-8.2); SODIUM,NA 142 mmol/L (140-148)
[2025-02-12 08:20] LABS: POTASSIUM,K 2.9 mmol/L (3.6-5.2)
[2025-02-12] MEDS: Potassium Chloride 10% 20 MEQ/15 ML Soln 15 ML UD Cup PO ONE ×3 (09:28→17:38)
[2025-02-12 16:26] LABS: BLOOD UREA NITROGEN,BUN 20.0 mg/dL (7-18); CARBON DIOXIDE,CO2 33.0 mmol/L (21-32); CHLORIDE,CL 104.0 mmol/L (100-108); CREATININE 0.9 mg/dL (0.8-1.3); EST CRCL DRUG DOSING (CG) 75.05 mL/min; ESTIMATED GFR 92.0 mL/min (>60); GLUCOSE RANDOM 118.0 mg/dL (74-106); PHOSPHORUS 2.4 mg/dL (2.5-4.9); POTASSIUM,K 3.4 mmol/L (3.6-5.2); SODIUM,NA 141.0 mmol/L (140-148)
[2025-02-12 17:17] LABS: APPEARANCE,URINE CLEAR (CLEAR); GLUCOSE,URINE NEGATIVE (NEGATIVE); OCCULT BLOOD,URINE NEGATIVE (NEGATIVE)
[2025-02-12 17:30] LABS: SQUAMOUS EPITHELIAL CELLS,UR RARE /HPF; UROTHELIAL CELLS,URINE NOT SEEN /HPF
[2025-02-12] MEDS: Phosphorus #1 250 MG Tab PO ONE (18:25)
[2025-02-13 06:22] LABS: BLOOD UREA NITROGEN,BUN 17.0 mg/dL (7-18); CARBON DIOXIDE,CO2 35.0 mmol/L (21-32); CHLORIDE,CL 104.0 mmol/L (100-108); CREATININE 0.9 mg/dL (0.8-1.3); EST CRCL DRUG DOSING (CG) 75.05 mL/min; ESTIMATED GFR 92.0 mL/min (>60); GLUCOSE RANDOM 93.0 mg/dL (74-106); PHOSPHORUS 2.6 mg/dL (2.5-4.9); POTASSIUM,K 3.8 mmol/L (3.6-5.2); SODIUM,NA 141.0 mmol/L (140-148)
[2025-02-14 21:49] LABS: CORTISOL,SERUM 16.8 ug/dL
== END 2025-02-13 16:12 | disposition home or self-care (01) | DRG 871 ==
LOC: EDBD 10:12 → JP.ED 10:12 → JP.ICU 13:02 → MERGE 13:02 → JP.MS 02-09 14:33
PROVIDERS: ADMIT Student in an Organized Health Care Education/Training Program; ATTEND Internal Medicine
PROC: 4A033R1 Measurement of Arterial Saturation, Peripheral, Percutaneous Approach (ICD-10-PCS; principal; 2025-02-07)
PROC: 0DH63UZ Insertion of Feeding Device into Stomach, Percutaneous Approach (ICD-10-PCS; principal; 2025-02-07)
PROC: 3E03329 Introduction of Other Anti-infective into Peripheral Vein, Percutaneous Approach (ICD-10-PCS; principal; 2025-02-07)
PROC: 3E0G76Z Introduction of Nutritional Substance into Upper GI, Via Natural or Artificial Opening (ICD-10-PCS; 2025-02-07)
PROC: 3E033XZ Introduction of Vasopressor into Peripheral Vein, Percutaneous Approach (ICD-10-PCS; 2025-02-07)
DX: A41.51 Sepsis due to Escherichia coli [E. coli] (principal); I95.9 Hypotension, unspecified; J18.9 Pneumonia, unspecified organism; J69.0 Pneumonitis due to inhalation of food and vomit; R65.21 Severe sepsis with septic shock; J96.01 Acute respiratory failure with hypoxia; N39.0 Urinary tract infection, site not specified; Z79.1 Long term (current) use of non-steroidal anti-inflammatories (NSAID); J44.0 Chronic obstructive pulmonary disease with (acute) lower respiratory infection; Z16.12 Extended spectrum beta lactamase (ESBL) resistance; A41.59 Other Gram-negative sepsis; E86.0 Dehydration; R13.12 Dysphagia, oropharyngeal phase; I95.1 Orthostatic hypotension; E83.42 Hypomagnesemia; E87.6 Hypokalemia; E86.1 Hypovolemia; E03.9 Hypothyroidism, unspecified; Z79.899 Other long term (current) drug therapy; Z87.891 Personal history of nicotine dependence; Z86.16 Personal history of COVID-19; Z90.49 Acquired absence of other specified parts of digestive tract; Z98.890 Other specified postprocedural states; Z90.89 Acquired absence of other organs; Z85.818 Personal history of malignant neoplasm of other sites of lip, oral cavity, and pharynx; Z92.21 Personal history of antineoplastic chemotherapy; Z92.3 Personal history of irradiation; Z79.890 Hormone replacement therapy
CPT/HCPCS: 36415; 70450 ×2; 71045 ×2; 71275 ×2; 80053; 81001; 82550; 82803; 83605; 83735; 83880; 84443; 85025; 85379; 86140; 87040 ×2; 87641; 93005; 96365 ×2; 99285; J0456; J7030 ×3; J7050; 00813-QZ; 51798; 80048; 80202; 82533; 84100; 85027; 87070; 87077; 87186; 87205; 87426-QW; 87493; 92610-GN; 93010; 99223; 99231; 99232; 99239; A9270-GY; J1171; J1650; J1720; J2543; J2704; J3010; J3373